=== PATIENT | male | born 1940 | race Caucasian/White ===

== ENCOUNTER → 2016-11-01 | Outpatient (CLI) | payer BC ==
[~2016-11-01] MED LIST: ASPI-232 PO; HYDR12.56 PO; MULT-506 PO; MULT60CA PO; OMEG10007 PO; SAWCAP2 PO; SIMV20TA2 PO; [UNRECOGNIZED DRUG - OTHER] PO
[2016-11-01 10:35] LABS: BASO % 0.6 %; BASO ABS # 0.03 K/uL (0-0.2); COMPLETE YES; EOS % 3.8 %; HEMATOCRIT 48.1 % (42-52); LYMPH % 34.6 %; LYMPH ABS # 1.83 K/uL (1.2-3.4); MEAN CELL VOLUME 91.1 fL (80-100); MEAN CORPUSCULAR HEMOGLOBIN 30.9 pg (25-34); MEAN CORPUSCULAR HGB CONC 33.9 g/dl (32-36); MEAN PLATELET VOLUME 11.7 fL (7.4-10.4); MONO % 9.3 %; NEUT % 51.7 %; PLATELET COUNT 160 K/uL (130-400); RED BLOOD COUNT 5.28 M/uL (4.7-6.1); WHITE BLOOD COUNT 5.29 K/uL (4.8-10.8)
[2016-11-01 10:58] LABS: ESTIMATED AVERAGE GLUCOSE 134 mg/dl; HA1C FLAG Normal (Normal)
[2016-11-01 11:30] LABS: ALKALINE PHOSPHATASE 76 U/L (45-117); ALT/SGPT 28 U/L (12-78); AST/SGOT 22 U/L (15-37); BLOOD UREA NITROGEN 24 mg/dl (7-18); CALCIUM 8.3 mg/dl (8.5-10.1); CARBON DIOXIDE 28 mmol/L (21-32); CHLORIDE 109 mmol/L (98-107); CREATININE 0.95 mg/dl (0.60-1.40); GLUCOSE 96 mg/dl (70-99); HDL CHOLESTEROL 49 mg/dl; SODIUM 144 mmol/L (136-145); URIC ACID 5.7 mg/dl (2.6-7.2)
[2016-11-01 11:35] LABS: CHOLESTEROL 155 mg/dl (0-200); CHOLESTEROL/HDL RATIO 3.2; LDL CHOLESTEROL CALCULATED 91 mg/dl; PHOSPHORUS 2.9 mg/dl (2.5-4.9); TRIGLYCERIDES 76 mg/dl (0-150); VERY LOW DENSITY LIPOPROT CALC 15 mg/dl
[2016-11-02 11:00] LABS: C-REACTIVE PROT HIGHSEN 1.1 MG/L
--- NOTE | 2016-11-05 14:10 | CODING QUERY MEDICAL NECESSITY ---
CQSUPPORTING DIAGNOSIS NEEDED A supporting diagnosis is required for the test/procedure performed on this patient in order for us to be reimbursed by the patient's insurance. Please provide a supporting diagnosis for the following test/procedure listed below next to the test name along with your signature. *If there is no additional diagnosis for this patient that would support the following test/procedure please document that below next to the test/procedure. Test(s)/Procedure(s) that require a supporting diagnosis: DOS 11/01/16 VITAMIN D VITAMIN B12 C-REACTIVE PROTEIN HIGH SENSITIVITY TEST Provider Signature: Date: Thank you Zora [facility] Information Management Once completed, please kindly fax back to [phone] For questions please call [phone]
== END | disposition home or self-care (01) ==
LOC: C.LABBC 08:11
PROVIDERS: ATTEND Family Medicine
DX: E11.9 Type 2 diabetes mellitus without complications (principal); E55.9 Vitamin D deficiency, unspecified; D51.9 Vitamin B12 deficiency anemia, unspecified; E78.2 Mixed hyperlipidemia

== ENCOUNTER → 2016-12-18 | Outpatient (CLI) | payer BC ==
--- NOTE | 2016-12-18 10:35 | DIAGNOSTIC IMAGING REPORT ---
KUB HISTORY: 76 years-old Male N20.0 [id number] COMPARISON: 04/09/2016 TECHNIQUE: Single KUB radiograph FINDINGS: No definite urolithiasis identified. Right kidney is partially secured by overlying bowel. There are moderate degenerative changes of the bilateral hips. Multilevel degenerative changes are seen to the spine. No fracture. There is no bowel obstruction. IMPRESSION: No evidence of nephrolithiasis. The above report was generated using voice recognition software. It may contain grammatical, syntax or spelling errors. Electronically signed by: Hernán Rodriguez M.D. 12/18/2016 10:33 AM Dictated Date/Time: 12/18/2016 10:32 AM
--- NOTE | 2016-12-24 14:20 | CODING QUERY MEDICAL NECESSITY ---
SUPPORTING DIAGNOSIS NEEDED Dr. Ellis, A supporting diagnosis is required for the test/procedure performed on this patient in order for us to be reimbursed by the patient's insurance. Please provide a supporting diagnosis for the following test/procedure listed below next to the test name along with your signature. *If there is no additional diagnosis for this patient that would support the following test/procedure please document that below next to the test/procedure. Test(s)/Procedure(s) that require a supporting diagnosis: * [id number] PSA DIAGNOSIS: DATE OF SERVICE: 12/18/16 Provider Signature: Date: Thank you Yovani Gaytan [facility] Information Management Once completed, please kindly fax back to [phone] For questions please call [phone]
== END | disposition home or self-care (01) ==
LOC: C.RADBC 10:06
PROVIDERS: ATTEND Urology
DX: N20.0 Calculus of kidney (principal); N40.1 Benign prostatic hyperplasia with lower urinary tract symptoms; N13.8 Other obstructive and reflux uropathy

== ENCOUNTER 2022-07-26 08:23 | Observation (INO) ==
--- NOTE | 2022-06-29 15:21 | PAT Medication Instructions ---
Medication Instructions Date of Service June 29, 2022 Home Medications amlodipine 5 mg tablet 5 mg PO QAM multivitamin (Daily Multi-Vitamin tablet) 1 tab PO QAM alpha lipoic acid 300 mg capsule 300 mg PO BID ascorbic acid (vitamin C) 1,000 mg tablet (Vitamin C With Colleen Hips) 1 g PO Q OTHER DAY aspirin 81 mg tablet,delayed release 81 mg PO HS cholecalciferol (vitamin D3) 50 mcg (2,000 unit) capsule 50 mcg PO Q OTHER DAY k-m mineral 1 tsp PO QAM mecobalamin (vitamin B12) 1,000 mcg disintegrating tablet,sublingual 1,000 mcg sublingual BID omega-3 fatty acids [[place]-3] 2 tab PO BID peg 400-propylene glycol [Systane Ultra] 2 drp ophthalmic (eye) BID saw palmetto fruit extract 160 mg-phytosterol cmb.no.2 250 mg capsule (Prostate SR) 2 cap PO BID vit C,E,zinc,Gu-wqiqa-7-lutein-zeaxanthin 250 mg-2.5 mg-0.5 mg capsule 2 cap PO BID zinc gluconate-vitamin C [zinc] 1 tab PO WK finasteride 5 mg tablet 5 mg PO HS hydrochlorothiazide 12.5 mg tablet 12.5 mg PO QAM Continue as directed zinc gluconate-vitamin C [zinc] 1 tab PO WK (just do not take on morning of surgery) STOP taking 2 weeks before surgery alpha lipoic acid 300 mg capsule 300 mg PO BID k-m mineral 1 tsp PO QAM ascorbic acid (vitamin C) 1,000 mg tablet (Vitamin C With Colleen Hips) 1 g PO Q OTHER DAY omega-3 fatty acids [[place]-3] 2 tab PO BID saw palmetto fruit extract 160 mg-phytosterol cmb.no.2 250 mg capsule (Prostate SR) 2 cap PO BID vit C,E,zinc,Yi-ozpfg-6-lutein-zeaxanthin 250 mg-2.5 mg-0.5 mg capsule 2 cap PO BID DO NOT take the morning of surgery multivitamin (Daily Multi-Vitamin tablet) 1 tab PO QAM cholecalciferol (vitamin D3) 50 mcg (2,000 unit) capsule 50 mcg PO Q OTHER DAY mecobalamin (vitamin B12) 1,000 mcg disintegrating tablet,sublingual 1,000 mcg sublingual BID hydrochlorothiazide 12.5 mg tablet 12.5 mg PO QAM Take morning of surgery With a small sip of water, OTHERWISE NOTHING TO EAT OR DRINK AFTER MIDNIGHT: amlodipine 5 mg tablet 5 mg PO QAM peg 400-propylene glycol [Systane Ultra] 2 drp ophthalmic (eye) BID Take evening before surgery aspirin 81 mg tablet,delayed release 81 mg PO HS (unless surgeon directed otherwise) mecobalamin (vitamin B12) 1,000 mcg disintegrating tablet,sublingual 1,000 mcg sublingual BID peg 400-propylene glycol [Systane Ultra] 2 drp ophthalmic (eye) BID finasteride 5 mg tablet 5 mg PO HS Other Notes If you have any questions please call us at [phone] or [phone] or [phone] or [phone]
--- NOTE | 2022-07-04 10:55 | Anesthesiology Consultation ---
Date of Service July 04, 2022 Assessment & Plan (1) Encounter for pre-operative examination: - COVID screening: Per assessment on 07/04: No known COVID-19 positive contacts or current COVID-19 related symptoms. Travel screen negative. Patient vaccinated. At surgeon discretion if preop Covid testing being done. - Check BSG AM DOS - Anesthesia concern: Per patient, he felt like his 's Alzheimer's/dementia issues noted after cataracts surgery/anesthesia. He has concerns about upcoming surgery/anesthesia causing similar issue to him. Questions answered. Advised him to discuss further with anesthesiology day of surgery if any additional questions/concerns. - Awaiting surgeon-ordered PCP (VERONICAG, appt 07/05) and cardiology (VERONICAG, appt 07/05) preop evaluations. Chart Review Chart Review: Patient seen in Pre Admission Testing Teaching & Discussion Pre-Anesthesia Teaching/Discussion Notes: Instructed NPO after midnight before surgery,except medications with 15 cc of water. Medication instructions provided according to the PAT guidelines. History Surgery Operation Date: 07/26/22 10:15 Proposed Procedures p Left Total Knee Arthroplasty - Robb Hanson MD Height/Weight Height: 5 ft 10.5 in Weight: 83.7 kg Allergies Allergy/AdvReac Type Severity Reaction Status Date / Time No Known Allergies Allergy Verified 06/29/22 08:34 Medications Home Medications Medication Instructions Recorded Confirmed Last Taken amlodipine 5 mg tablet 5 mg PO QAM 02/06/19 06/29/22 Unknown multivitamin (Daily Multi-Vitamin 1 tab PO QAM 02/06/19 06/29/22 Unknown tablet) alpha lipoic acid 300 mg capsule 300 mg PO BID 04/25/21 06/29/22 Unknown ascorbic acid (vitamin C) 1,000 mg 1 g PO Q OTHER DAY 04/25/21 06/29/22 Unknown tablet (Vitamin C With Colleen Hips) aspirin 81 mg tablet,delayed 81 mg PO HS 04/25/21 06/29/22 Unknown release cholecalciferol (vitamin D3) 50 50 mcg PO Q OTHER DAY 04/25/21 06/29/22 Unknown mcg (2,000 unit) capsule k-m mineral 1 tsp PO QAM 04/25/21 06/29/22 Unknown mecobalamin (vitamin B12) 1,000 1,000 mcg sublingual BID 04/25/21 06/29/22 Unknown mcg disintegrating tablet,sublingual omega-3 fatty acids [[place]-3] 2 tab PO BID 04/25/21 06/29/22 Unknown peg 400-propylene glycol [Systane 2 drp ophthalmic (eye) BID 04/25/21 06/29/22 Unknown Ultra] saw palmetto fruit extract 160 2 cap PO BID 04/25/21 06/29/22 Unknown mg-phytosterol cmb.no.2 250 mg capsule (Prostate SR) vit 2 cap PO BID 04/25/21 06/29/22 Unknown C,E,zinc,Rr-tktxa-3-lutein-zeaxanthin 250 mg-2.5 mg-0.5 mg capsule zinc gluconate-vitamin C [zinc] 1 tab PO WK 04/25/21 06/29/22 Unknown finasteride 5 mg tablet 5 mg PO HS 03/28/22 06/29/22 Unknown hydrochlorothiazide 12.5 mg tablet 12.5 mg PO QAM 03/28/22 06/29/22 Unknown Past Medical History Medical History Borderline diabetes mellitus Diet controlled BPH (benign prostatic hyperplasia) Hypertension Knee injury LBBB (left bundle branch block) follows with Dr. Saab Mixed hyperlipidemia Nephrolithiasis Organic impotence Osteoarthritis Exercise / Class Metabolic Activity II 4-5 Yardwork/Stairs/Walk up hill Past Family History Family History Denies family history of Ovarian cancer Prostate cancer Diabetes Myocardial infarction Breast cancer Colorectal cancer Past Surgical History Surgical History H/O lithotripsy H/O rotator cuff surgery Left History of colonoscopy History of esophagogastroduodenoscopy (EGD) History of tooth extraction S/P cataract extraction R/L S/P tonsillectomy Past Anesthesia History No Hx of Anesthesia Complications and No Family Hx of Anesthesia Complications History of PONV No Hx of PONV and No Hx of Motion Sickness Social History Smoking Status: Former smoker Do You Dip or Chew Tobacco: No Smoking End Date: Quit 60 years ago Hx Alcohol Use: Yes Alcohol type: wine alcohol intake frequency: a few times a month Hx Substance Use: No substance use type: does not use Review of Systems Patient denies chest pain, shortness of breath, dyspnea on exertion, fever, chills, cough, wheezing, palpitations. Physical Exam Vital Signs VITALS BP 130/70 P 67 TEMP 98.2 SP02 96%RA RESP 16 PHYSICAL Full cervical extension range of motion. Full TMJ range of motion. TMD 3 finger breaths Mallampati Score 2 Dentition: intact, + implants (molars/sides) Lungs: clear throughout to auscultation Cardiac: regular rate and rhythm, no murmurs noted Spine: normal Carotid arteries: negative bruit Extremities: no edema Lab Results Anesthesia Preop Results Results Anesthesia Widget: WBC 6.38 K/ul (4.8-10.8) 07/04/22 Hgb 15.1 g/dl (14.0-18.0) 07/04/22 Hct 44.4 % (42.0-52.0) 07/04/22 Plt 151 K/uL (130-400) 07/04/22 Na 140 mmol/L (136-145) 07/04/22 K 4.1 mmol/L (3.5-5.1) 07/04/22 Cl 104 mmol/L (98-107) 07/04/22 CO2 33 mmol/L (21-32) H 07/04/22 BUN 21 mg/dl (6-23) 07/04/22 Creat 0.81 mg/dl (0.6-1.4) 07/04/22 Glucose Level 135 mg/dl (70-99(Fasting)) H 07/04/22 PT 10.7 Seconds (9.0-12.0) 07/04/22 PTT 27.5 Seconds (21.0-31.0) 07/04/22 INR 1.0 (0.9-1.1) 07/04/22 HA1c 6.8 % (4.5-5.6) H 07/04/22 Urine Color Yellow 07/04/22 Urine Appearance Clear (Clear) 07/04/22 Urine pH 6.5 (4.5-7.5) 07/04/22 Urine Specific [place] 1.019 (1.000-1.030) 07/04/22 Urine Protein Negative (Negative) 07/04/22 Urine Glucose (UA) Negative (Negative) 07/04/22 Urine Ketones Negative (Negative) 07/04/22 Urine Blood Negative (Negative) 07/04/22 Urine Nitrite Negative (Negative) 07/04/22 Urine Bilirubin Negative (Negative) 07/04/22 Urine Urobilinogen Negative (Negative) 07/04/22 Urine Leukocyte Esterase Negative (Negative) 07/04/22 Blood Type O Positive 07/04/22 Antibody Screen NEGATIVE 07/04/22 Testing Electrocardiogram Date: 07/04/22 NSR at 75bpm. LAD. LBBB. No significant change compared to 01/05/2003 per retail advertising account executive review. Echocardiogram Date: 12/28/20 EF 50-55%. No regional motion abnormalities. Septal motion consistent with bundle branch block. Moderate concentric LVH. Type I diastolic dysfunction. Study was originally ordered as exercise stress echo but given left bundle branch block, stress testing was not performed. Consider Lexiscan myocardial perfusion study given left bundle branch block if noninvasive ischemic evaluation is warranted. Per subsequent cardio visit 04/25/21, echo findings reviewed- "stable from cardiac standpoint. With current activity no new exertional symptoms. On exam today no signs of heart failure or new PVD. Recent echocardiogram with stable LV function." Recommendation for 1 year followup. No ischemic testing ordered. COVID-19 Risk Screen Screening Information COVID-19 Screen Date: 07/04/22 Exposure 21 Days Family/Household +COVID Last 21 Days: No Exposure 10 Days Any COVID Exposure Last 10 Days: No Symptoms Last 10 Days Experienced COVID Sx Last 10 Days: No + COVID 0-90 Days COVID + in Last 0-90 Days: No
--- NOTE | 2022-07-04 15:28 | History & Physical Report ---
Date of Service July 04, 2022 Assessment & Plan (1) Osteoarthritis of left knee: Plan: PRE-OP Diagnosis: Left knee osteoarthritis Planned Procedure: Left total knee arthroplasty Plan: Patient is scheduled to undergo this procedure at the [facility] with Dr. Hanson on July. Risks and complications of the procedure such as: Infection, bleeding, pain, scarring, nerve blood vessel damage, weakness, wound problems, stiffness, incomplete relief of symptoms, hardware failure, hardware loosening, wear, fracture, tendon or ligament injury, blood clots, embolism, cardiac, stroke and were explained to the patient at his visit today and informed consent for the procedure was obtained. Patient also understands risks of proceeding with surgical intervention during the COVID-19 pandemic. Currently he is asymptomatic and states that he has not been in contact with anyone positive for the virus recently. 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 Patient is scheduled to meet with anesthesia at the hospital later this morning. While there he will obtain a CBC with differential, complete metabolic panel, PT/INR, PTT, blood type and screen, urinalysis, urine culture and sensitivity, EKG. During today's visit we reviewed the total knee packet. I provided the patient with paperwork to obtain obtaining a handicap placard for his vehicle. I provided her with information about lectures offered by [facility] in regards to joint replacement surgery. I provided him with an order to obtain a walker. I recommended that he purchase a shower chair and raised toilet seat. We discussed discharge planning from the hospital. Patient states he would like to do his postoperative physical therapy at [facility] where his is a resident.. I advised the patient that he will be provided with a prescription for narcotic pain medication for postoperative pain control. We will have him increase his daily aspirin twice daily for the first 30 days postoperatively for blood clot prevention. Patient verbalized understanding of all information provided during today's visit. He thanks for the care that he received. If he has questions or concerns prior to his surgery, he will contact clinic. Patient be scheduled for 2-week postoperative follow-up visit with myself on August 08, 2022. This chart was completed utilizing [employer] voice recognition software. Grammatical errors, random word insertions, pronoun errors, and in complete sentences are an occasional consequence of the system. Any questions or concerns about the content, text, or information contained within the body of this dictation should be addressed directly to the physician for clarification. History of Present Illness Chief Complaint: Chief Complaint: Left knee pain Primary Care Provider: Ludin Downey MD History of Present Illness (including history relevant to procedure): Is a 82-year-old male presents clinic today for his preoperative history and physical. 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 Patient localizes most of his pain to the anterior medial aspect of the left knee. He states that time the pain does radiate proximally. He states is affecting his gait. He states that he has done physical therapy tried oral nonsteroidal agents and rest without significant relief. He has also had his knee aspirated and received corticosteroid injections without resolve. Patient states that he recently had to send his to [facility] because he is unable to care for her due to these issues. Review Of Systems: A 12 point review of systems is performed and is unremarkable except for those things stated in the HPI and past medical history. Past Medical History: Problems: Diabetes Irregular heartbeat Left knee pain Epidermal cyst Lipoma Inflamed seborrheic keratosis Keratosis, seborrheic Family history of melanoma Elevated cholesterol HTN (hypertension) Benign neoplasm of skin Procedure History Procedure Procedure Date Comments Rotator cuff repair Prostate - surgery Cataract Punch biopsy Esophageal dilator Allergies and Sensitivities: NKA Social history: Patient states that he occasionally consumes a glass of wine but denies tobacco or illicit drug use. Family history: Emphysema, heart disease, diabetes and stroke Current Home Meds: (Last Updated 07/04 09:45) amLODIPine (amLODIPine 5 mg oral tablet) 5 mg PO Daily ascorbic acid (Vitamin C) aspirin (Aspirin Low Dose 81 mg oral delayed release tablet) 81 mg PO Daily cholecalciferol (Vitamin D3 50 mcg (2000 intl units) oral tablet, chewable) cyanocobalamin (Vitamin B12) 1,000 mcg finasteride (finasteride 5 mg oral tablet) 5 mg PO Daily Women of childbearing age should not touch or handle broken tablets. Berna Umaña 04/17 09:38 hydroCHLOROthiazide (hydrochlorothiazide 12.5 mg oral tablet) 12.5 mg PO Daily 5 mg daily multivitamin with minerals (PreserVision oral tablet) 1 tab PO Daily multivitamin with minerals (One-A-Day Men 50 Plus) 1 tab PO Daily omega-3 polyunsaturated fatty acids (Fish Oil 1000 mg oral capsule) 1,000 mg PO bid saw palmetto (Prostate SR 320 mg oral capsule) 640 mg PO bid simvastatin (simvastatin 20 mg oral tablet) 20 mg PO qhs zinc sulfate (Zinc) Allergies Allergy/AdvReac Type Severity Reaction Status Date / Time No Known Allergies Allergy Verified 06/29/22 08:34 Home Medications Medication Instructions Recorded Confirmed Type amlodipine 5 mg tablet 5 mg PO QAM 02/06/19 06/29/22 History multivitamin (Daily Multi-Vitamin 1 tab PO QAM 02/06/19 06/29/22 History tablet) alpha lipoic acid 300 mg capsule 300 mg PO BID 04/25/21 06/29/22 History ascorbic acid (vitamin C) 1,000 mg 1 g PO Q OTHER DAY 04/25/21 06/29/22 History tablet (Vitamin C With Colleen Hips) aspirin 81 mg tablet,delayed 81 mg PO HS 04/25/21 06/29/22 History release cholecalciferol (vitamin D3) 50 50 mcg PO Q OTHER DAY 04/25/21 06/29/22 History mcg (2,000 unit) capsule k-m mineral 1 tsp PO QAM 04/25/21 06/29/22 History mecobalamin (vitamin B12) 1,000 1,000 mcg sublingual BID 04/25/21 06/29/22 History mcg disintegrating tablet,sublingual omega-3 fatty acids [[place]-3] 2 tab PO BID 04/25/21 06/29/22 History peg 400-propylene glycol [Systane 2 drp ophthalmic (eye) BID 04/25/21 06/29/22 History Ultra] saw palmetto fruit extract 160 2 cap PO BID 04/25/21 06/29/22 History mg-phytosterol cmb.no.2 250 mg capsule (Prostate SR) vit 2 cap PO BID 04/25/21 06/29/22 History C,E,zinc,Qp-ciggl-0-lutein-zeaxanthin 250 mg-2.5 mg-0.5 mg capsule zinc gluconate-vitamin C [zinc] 1 tab PO WK 04/25/21 06/29/22 History finasteride 5 mg tablet 5 mg PO HS 03/28/22 06/29/22 History hydrochlorothiazide 12.5 mg tablet 12.5 mg PO QAM 03/28/22 06/29/22 History Past Med/Surg History Medical History Borderline diabetes mellitus Diet controlled BPH (benign prostatic hyperplasia) Hypertension Knee injury LBBB (left bundle branch block) follows with Dr. Saab Mixed hyperlipidemia Nephrolithiasis Organic impotence Osteoarthritis Surgical History H/O lithotripsy H/O rotator cuff surgery Left History of colonoscopy History of esophagogastroduodenoscopy (EGD) History of tooth extraction S/P cataract extraction R/L S/P tonsillectomy Family History Denies family history of Ovarian cancer Prostate cancer Diabetes Myocardial infarction Breast cancer Colorectal cancer Social History Smoking Status: Former smoker Tobacco Type: Cigarettes Age Started Using Tobacco: 16; Age Quit Using Tobacco: 18; Second Hand Exposure: No; Hx Alcohol Use: Yes Alcohol type: wine Alcohol Intake Frequency: Monthly or Less Hx Substance Use: No Preferred Language: Czech Communication Ability: Effective Visual Impairment: No Limitations Hearing Ability: Hard of Hearing Interior Design Coordinator Required: No Beliefs That Will Affect Care: None marital status: Current Living Situation: Alone current occupational status: retired How many Children do You have: 2 Feels Safe at Home: Yes Childhood Exposure to Second-Hand Smoke: No caffeine: Yes during the past year weight has: remained stable Dental Care, Regularly: Yes Physical Activity Frequency: 3-4 Times per Week Seatbelt Use: always Sunscreen Use: Yes Assistive Devices: Glasses Review of Systems All systems reviewed & are unremarkable except as noted in Subjective Physical Exam Physical Exam: Physical Exam: (relevant to the procedure, including heart and lung evaluation) General: Alert and oriented x3 with proper grooming and hygiene Eyes: Pupils are equal and reactive to light with accommodation. Extraocular movements are intact Throat: Posterior oropharynx clear with absence of edema, erythema or exudate. Dentition is appropriate Cardiac: Regular rate and rhythm with no murmurs or gallops appreciated Lungs: Clear to auscultation throughout with no wheezing, rales or rhonchi Abdomen: Obese, nondistended, nontender with normal active bowel sounds Extremities: Left knee; range of motion is from a degrees of extension to 120 degrees of flexion. Patient experiences medial and lateral joint line tenderness when the knee is palpated in the flexed position. He has visible varus malalignment. His patella is nonmobile due to arthritic change within the patellofemoral joint. There is crepitation with passive range of motion. Otherwise he is neurovascularly intact in the left lower extremity. Neuro: Cranial nerves II through XII are intact with no motor or sensory deficit Skin: Normal in appearance with no open skin areas or discharge Results & Data ([facility]) Diagnostic Findings Studies (relevant to the procedure): RADIOGRAPHIC: Left knee x-rays obtained today 3 views, and long leg alignment films personally interpreted by me show [id number] arthritis at the medial left knee joint, small enthesophyte off superior pole patella, varus malalignment.
[~2022-07-26 08:23] MED LIST changes: +ACETAMINOPHEN 500 MG TAB PO SCH; -ASPI-232 PO; +BUPIVACAINE 0.5 % 5 MG/1 ML PF 10ML VIAL ONE; +CeleBREX 200 MG CAP PO SCH; +FAMOTIDINE 20 MG TAB PO SCH; -HYDR12.56 PO; +LR 500ML BOLUS, THEN 15ML/HR IV SCH; +LR 60ML/HR IV SCH; -MULT-506 PO; -MULT60CA PO; -OMEG10007 PO; +ROPIVACAINE 0.5% 5 MG/ML 30 ML VIAL ONE; +ROPIVACAINE 0.5% HCL/PF 150 MG, BUPIVACAINE 0.75% MPF 20 ML, EPINEPHrine 0.15 MG, Ketor... INFIL SCH; -SAWCAP2 PO; -SIMV20TA2 PO; +Scopolamine 1 MG TDSY TD SCH; +TRANEXAMIC ACID 1,000 MG **IV Intra-op IV SCH; +TRANEXAMIC ACID 1,000 MG **IV Pre-op IV SCH; -[UNRECOGNIZED DRUG - OTHER] PO; +ceFAZolin 2000MG 2,000 MG/15 ML SYR IV SCH; +dexAMETHasone 4 MG TAB PO SCH; +traMADol HCL 50 MG TABLET PO SCH
[2022-07-26] MEDS ORDERED: LIDOCAINE 2% MPF LOCAL 5 ML VIAL INFIL ONE (08:54)
[2022-07-26] MEDS ORDERED: MIDAZOLAM HCL 1 MG/ML 2ML VIAL ONE (08:54)
[2022-07-26] MEDS ORDERED: PROPOFOL IV EMULSION 10 MG/ML 20 ML VIAL IV ONE ×3 (08:54→10:54)
--- NOTE | 2022-07-26 08:58 | Anesthesiology Consultation ---
Date of Service July 26, 2022 Assessment & Plan Chart Review Chart Review: Acceptable Risk for Surgery Consults Requested none ASA ASA3 Proposed Anesthesia Anesthesia Type: MAC Spinal Regional Laterality: Left Site: Adductor Canal Risk / Benefits Reviewed With: PT / POA / Parent / Guardian, Accepts Plan and Informed Consent Obtained History Surgery Operation Date: 07/26/22 10:05 Proposed Procedures p Left Total Knee Arthroplasty - Robb Hanson MD Height/Weight Height: 5 ft 10.5 in Weight: 82.1 kg Allergies Allergy/AdvReac Type Severity Reaction Status Date / Time No Known Allergies Allergy Verified 07/26/22 08:52 Medications Home Medications Medication Instructions Recorded Confirmed Last Taken amlodipine 5 mg tablet 5 mg PO QAM 02/06/19 07/26/22 07/25/22 05:00 multivitamin (Daily Multi-Vitamin 1 tab PO QAM 02/06/19 07/26/22 07/24/22 08:00 tablet) alpha lipoic acid 300 mg capsule 300 mg PO BID 04/25/21 07/26/22 07/12/22 08:00 ascorbic acid (vitamin C) 1,000 mg 1 g PO Q OTHER DAY 04/25/21 07/26/22 07/12/22 08:00 tablet (Vitamin C With Colleen Hips) aspirin 81 mg tablet,delayed 81 mg PO HS 04/25/21 07/26/22 07/24/22 19:00 release cholecalciferol (vitamin D3) 50 50 mcg PO Q OTHER DAY 04/25/21 07/26/22 07/12/22 08:00 mcg (2,000 unit) capsule k-m mineral 1 tsp PO QAM 04/25/21 07/26/22 07/12/22 08:00 mecobalamin (vitamin B12) 1,000 1,000 mcg sublingual BID 04/25/21 07/26/22 07/12/22 08:00 mcg disintegrating tablet,sublingual omega-3 fatty acids [Aubrey-3] 2 tab PO BID 04/25/21 07/26/22 07/12/22 08:00 peg 400-propylene glycol [Systane 2 drp ophthalmic (eye) BID 04/25/21 07/26/22 07/12/22 08:00 Ultra] saw palmetto fruit extract 160 2 cap PO BID 11/07/26/22 07/12/22 08:00 mg-phytosterol cmb.no.2 250 mg capsule (Prostate SR) vit 2 cap PO BID 04/25/21 07/26/22 07/12/22 08:00 C,E,zinc,Dj-onmbp-0-lutein-zeaxanthin 250 mg-2.5 mg-0.5 mg capsule zinc gluconate-vitamin C [zinc] 1 tab PO WK 04/25/21 07/26/22 07/12/22 08:00 hydrochlorothiazide 12.5 mg tablet 12.5 mg PO QAM 03/28/22 07/26/22 07/24/22 08:00 finasteride 5 mg tablet 5 mg PO HS #90 tabs 07/05/22 07/26/22 07/25/22 19:00 Active Medications Generic Name Dose Route Start Last Admin Trade Name Freq PRN Reason Stop Dose Admin Acetaminophen 1,000 mg 07/26/22 06:00 07/26/22 08:59 Acetaminophen 500 Mg Tab PO 07/26/22 18:00 1,000 mg PREOP DUARTE Administration Celecoxib 200 mg 07/26/22 06:00 07/26/22 08:59 Celebrex 200 Mg Cap PO 07/26/22 18:00 200 mg PREOP DUARTE Administration Dexamethasone 8 mg 07/26/22 06:00 07/26/22 08:59 Dexamethasone 4 Mg Tab PO 07/26/22 18:00 8 mg PREOP DUARTE Administration Famotidine 20 mg 07/26/22 06:00 07/26/22 09:00 Famotidine 20 Mg Tab PO 07/26/22 18:00 20 mg PREOP DUARTE Administration Lactated Ringer's 1,000 mls @ 15 mls/hr 07/26/22 06:00 07/26/22 09:01 Lr IV 07/26/22 18:00 15 mls/hr .Q24H DUARTE Administration Lactated Ringer's 1,000 mls @ 60 mls/hr 07/26/22 06:00 07/26/22 09:01 Lr IV 07/26/22 22:39 Not Given .[id number] DUARTE Tranexamic Acid 1,000 mg in 100 mls @ 600 mls/hr 07/26/22 06:00 07/26/22 10:15 Tranexamic Acid / 0.7% Nacl IV 07/26/22 18:00 Infused TODAY@0600 DUARTE Infusion Scopolamine 1 mg 07/26/22 06:00 07/26/22 09:00 Scopolamine 1 Mg Tdsy TD 07/26/22 18:00 1 mg PREOP DUARTE Administration Tramadol HCl 50 mg 07/26/22 06:00 07/26/22 09:00 Tramadol Hcl 50 Mg Tablet PO 07/26/22 18:00 50 mg PREOP DUARTE Administration NPO Date Last Intake of Fluids: 07/26/22 Time Last Intake of Fluids: 07:00 Last Intake of Fluids Comment: sip with meds Date Last Intake of Solids: 07/25/22 Time Last Intake of Solids: 18:30 Past Medical History Medical History Borderline diabetes mellitus Diet controlled BPH (benign prostatic hyperplasia) Hypertension Knee injury LBBB (left bundle branch block) follows with Dr. Saab Mixed hyperlipidemia Nephrolithiasis Organic impotence Osteoarthritis Exercise / Class Metabolic Activity II 4-5 Yardwork/Stairs/Walk up hill Past Family History Family History Denies family history of Ovarian cancer Prostate cancer Diabetes Myocardial infarction Breast cancer Colorectal cancer Past Surgical History Surgical History H/O lithotripsy H/O rotator cuff surgery Left History of colonoscopy History of esophagogastroduodenoscopy (EGD) History of tooth extraction S/P cataract extraction R/L S/P tonsillectomy Past Anesthesia History No Hx of Anesthesia Complications and No Family Hx of Anesthesia Complications History of PONV No Hx of PONV and No Hx of Motion Sickness Social History Smoking Status: Former smoker Do You Dip or Chew Tobacco: No Smoking End Date: Quit 60 years ago Hx Alcohol Use: Yes Alcohol type: wine alcohol intake frequency: a few times a month Hx Substance Use: No substance use type: does not use Physical Exam Vital Signs Last Vital Signs Temp 36.4 C L 07/26/22 09:16 Pulse 81 07/26/22 09:16 Resp 20 07/26/22 09:16 BP 171/84 H 07/26/22 09:16 Pulse Ox 95 07/26/22 09:16 O2 Del Method Room Air 07/26/22 09:16 Constitutional no acute distress ENMT Thyromental Distance: > or= 3.5 Finger Breadths Mallampati Class: II Neck normal visual inspection Respiratory normal respiratory effort; no respiratory distress Auscultation: lungs clear to auscultation bilaterally Cardiovascular Rate/Rhythm: regular rate and regular rhythm Heart Sounds: no murmur Psychiatric Orientation: alert and oriented x 3 Testing Laboratory Results 07/26/22 09:06 POC Glucose 137 H Electrocardiogram Date: 07/04/22 NSR at 75bpm. LAD. LBBB. 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 Echocardiogram Date: 12/28/20 EF 50-55%. No regional motion abnormalities. Septal motion consistent with bundle branch block. Moderate concentric LVH. Type I diastolic dysfunction. Study was originally ordered as exercise stress echo but given left bundle branch block, stress testing was not performed. Consider Lexiscan myocardial perfusion study given left bundle branch block if noninvasive ischemic e valuation is warranted. Per subsequent cardio visit 04/25/21, echo findings reviewed- "stable from cardiac standpoint. With current activity no new exertional symptoms. On exam today no signs of heart failure or new PVD. Recent echocardiogram with stable LV function." Recommendation for 1 year followup. No ischemic testing ordered.
[2022-07-26] MEDS ORDERED: HYDROmorphone INJ 1 MG/ML SYRINGE IV PRN (09:01)
[2022-07-26] MEDS ORDERED: ePHEDrine sulfate 50 MG/ML AMP IV PRN (09:01)
[2022-07-26] MEDS ORDERED: ATROPINE SULFATE 0.1 MG/ML 10ML SYR IV PRN (09:01)
[2022-07-26] MEDS ORDERED: ONDANSETRON INJ 2 MG/ML 2 ML VIAL IV PRN ×2 (09:01→12:29)
[2022-07-26] MEDS ORDERED: fentaNYL citrate 100 MCG/2 ML VIAL ONE (09:45)
--- NOTE | 2022-07-26 10:03 | History & Physical Bridge Note ---
Date of Service July 26, 2022 History & Physical Bridge Note I have examined the patient, reviewed the History & Physical and in the interval since the performance of the History & Physical I have noted the following changes of clinical significance: no changes noted
[2022-07-26] MEDS ORDERED: ORTHO JOINT ANESTHETIC ONE (10:13)
[2022-07-26] MEDS ORDERED: ONDANSETRON INJ 2 MG/ML 2 ML VIAL ONE (10:33)
[2022-07-26] MEDS ORDERED: METOCLOPRAMIDE HCL INJ 5 MG/ML 2 ML VIAL ONE (10:43)
--- NOTE | 2022-07-26 12:26 | Operative Report ---
Post Operative Report Pre & Post Diagnosis Operation Date: 07/26/22 10:05 Pre-Op Diagnosis: Left Knee Osteoarthritis Post-Op Diagnosis: Left Knee Osteoarthritis I identified the patient and participated in the time-out.: Yes Procedure Operation Date: 07/26/22 10:05 Actual Procedures p Left Total Knee Arthroplasty(Left) - Robb Hanson MD Surgeon Robb Hanson MD School Psychology Specialist CARYN Schultz PA-C and Gertrude Quinones MS-2 Estimated Blood Loss 50 Findings Consistent with Post-Op Diagnosis Specimens 1. Nodular synovitis from the suprapatellar pouch 2. Bone and soft tissue contents left knee Anesthesia Type Spinal MAC Complications none Disposition Disposition: Recovery Room Indications 82-year-old male with left knee osteoarthritis refractory to conservative management. X-rays demonstrate [id number] disease. I had a long discussion with him about the risks and benefits of surgery, alternatives, and expected outcomes. After reviewing all these he elected to proceed with surgery. All questions were answered. Informed consent was signed. Description of Procedure Patient was identified in the preoperative holding area where the surgical site, left knee, was marked. Spinal anesthetic was placed by anesthesia. Patient was brought back to the operating room, placed on the operating room table, and IV sedation was administered. A bump was placed underneath the ipsilateral hip. All bony prominences were padded. Perioperative antibiotics and tranexamic acid were administered. Exam under anesthesia was performed. This demonstrated patient's range of motion to be 3 to 100 degrees. He was stable to varus and valgus at full extension and 30 degrees of flexion. A large 3+ effusion was noted as well. The surgical site was prepped and draped in the normal sterile fashion. Prior to incision a multidisciplinary timeout was called. All in the room were in agreement. We began by exsanguinating the limb with an Esmarch bandage. Tourniquet was inflated to 250 mmHg. A 14 cm long incision was made over the anterior aspect of the knee. I dissected through the subcutaneous tissues to the level of the fascia. Full-thickness flaps were raised above the fascia. A median parapatellar arthrotomy was made. Half the fat pad was excised. A medial release was performed with Bovie electrocautery on the proximal tibia. Synovitis in the knee and suprapatellar pouch was removed. There was an abnormal nodular component to the suprapatellar synovitis possibly consistent with pigmented villonodular synovitis. This was sent as a separate specimen for permanent section. The patella was then everted and held with 2 towel clips. The thickness of the patella was measured at 27 mm. Patellar resection was performed. Caliper showed the patella thickness now to be 16 mm. A size 41 trial was placed and had a great fit. The 3 drill holes were placed then the trial button was placed. The patellar thickness was now 27 mm which I was very happy with. The patellar trial was then removed, and the knee was flexed up. Retractors were placed to protect the MCL and LCL. Osteophytes were removed from the femoral condyles and intercondylar notch. The ACL and PCL were excised. Intramedullary drill guide was drilled into the femur. Distal femoral cutting guide was placed set at 5 degrees of valgus to resect 10 mm off the distal femur. Distal femoral resection was made without difficulty. The tibia was then exposed. The lateral meniscus was sharply excised. The tibial cutting jig was positioned in line with the tibial shaft in the coronal plane and with 3 degrees of posterior slope in the sagittal plane to resect 4 mm off the more involved medial compartment. The jig was then pinned in position and the tibial cut was made. We then brought the knee into full extension. Lamina spreaders were placed. The medial meniscus was excised. The extension block was then placed for 7 mm thickness poly. This gave us full extension and excellent stability to varus and valgus stress. Next the extension block was removed, the knee was flexed up, collateral ligaments were protected, and the epicondylar axis and Whitesides line were marked out on the distal femoral cut. Femoral sizing guide was placed. External rotation was set at 3 degrees so that the posterior cut would be parallel with the epicondylar axis and perpendicular with Whitesides line. The patient sized to a size 6 femur. 2 pins were then placed through the jig into the distal femur. The jig was removed and the appropriately sized 4-in-1 cutting jig was placed over the pins, then fixated to the bone using threaded, headed pins. We confirmed that we would not notch the femur with our anterior cut. Our 4 cuts were then made. The cutting jig was removed. The flexion block was then placed with the knee held at 90 degrees. There was excellent stability to varus and valgus at 90 degrees with no gapping medially or laterally. Next the box cutting jig was placed on the distal femur. The box cut was made and the femoral trial was impacted into position. Lug holes were drilled in the distal femur. We then reexposed the tibia. The tibia was sized to a 6 for a fixed bearing component. The tibial tray with a 7 mm thickness polyethylene liner was placed on the cut tibial surface and the knee was brought through a full range of motion. There was excellent stability to varus valgus stress throughout a full range of motion, which was approximately 0-135 degrees. Bovie electrocautery was used to heather the tibia at the site where the tibial tray rested in full extension. We then flexed up the knee, removed the polyethylene liner, and pinned the tibial tray into position to match the cautery heather. The intramedullary drill followed by the keel punch were used to prepare the tibia. Next the trial components were removed. I then injected the posterior capsule and periosteum with the periarticular injection cocktail. The bone cuts were then irrigated and dried while the cement was mixed on the back table. The femoral component was cemented on first. Excess cement was removed. A lap sponge was placed over the femoral component for protection, then the tibia was subluxated anteriorly. The all polyethylene tibial component was then cemented in place. Again excess cement was removed. The knee was brought into full extension and held there until the cement cured. The patella was cemented and clamped. Dilute Betadine solution was then allowed to soak in the knee while the cement cured. Once the cement was fully cured, the knee was irrigated out, the tourniquet was let down and meticulous hemostasis was ensured. The knee was brought through a full range of motion. I was were very happy with the patella tracking and the stability. We then began to close. Interrupted 0 Vicryl suture was used to repair the patellar retinaculum in [id number] fashion. The quadriceps and patellar tendons were run with #1 Vicryl. The deep dermal layer was closed with interrupted 2-0 Vicryl. Dermabond and Zipline was used for the skin, followed by a Silverlon dressing. A compressive Cameron wrap was placed and the knee was placed into a knee immobilizer. Patient's sedation was lifted and was transferred to recovery room in stable condition. Summary of implants: Depuy Attune Posterior Stabilized Cemented Femur, size 6 left Attune All-polyethylene tibial component, posterior stabilized 7 mm thickness, size 6 Attune patella medialized dome, size 41 2 batches of simplex high viscosity bone cement Postoperative course: Patient will be admitted to the floor for pain control and monitoring. Weightbearing as tolerated with a walker with no knee range of motion for 48 hours. Aspirin for DVT prophylaxis. I attest to the content of the Intraoperative Record and any orders documented therein. Any exceptions are noted below.
[2022-07-26] MEDS ORDERED: MAGNESIUM HYDROXIDE SUSP 30 ML UDC PO PRN (12:29)
[2022-07-26] MEDS ORDERED: HYDROmorphone INJ 0.5 MG/0.5 ML SYR IV PRN (12:29)
[2022-07-26] MEDS ORDERED: ALUMINUM/MAGNESIUM SUSP 30 ML UDC PO PRN (12:29)
[2022-07-26] MEDS ORDERED: TAMSULOSIN HCL 0.4 MG CAP PO PRN (12:29)
[2022-07-26] MEDS ORDERED: NALOXONE HCL 0.4 MG/1 ML VIAL/CARP IV PRN (12:29)
[2022-07-26] MEDS ORDERED: bisacodyL 10 MG SUPP PR PRN (12:29)
[2022-07-26] MEDS ORDERED: diphenhydrAMINE 50 MG/ML VIAL IV PRN (12:29)
[2022-07-26] MEDS ORDERED: METOCLOPRAMIDE HCL INJ 5 MG/ML 2 ML VIAL IV PRN (12:29)
--- NOTE | 2022-07-26 12:29 | Operative Report ---
Post Operative Report Pre & Post Diagnosis Operation Date: 07/26/22 10:05 Pre-Op Diagnosis: Left Knee Osteoarthritis Post-Op Diagnosis: Left Knee Osteoarthritis I identified the patient and participated in the time-out.: Yes Procedure Operation Date: 07/26/22 10:05 Actual Procedures p Left Total Knee Arthroplasty(Left) - Robb Hanson MD Surgeon Robb Hanson MD Project Portfolio Analyst CARYN Schultz PA-C and Gertrude Quinones MS-2 Estimated Blood Loss 50 Findings Consistent with Post-Op Diagnosis Specimens suprapatellar synovium Description of Procedure I was present during the entire procedure assisting with positioning, prepping, draping, wound retraction, wound closure, dressing and immobilizer placement. No fellow present. Please see Dr. Hanson procedure note for specifics of the case. I attest to the content of the Intraoperative Record and any orders documented therein. Any exceptions are noted below.
[2022-07-26] MEDS ORDERED: SODIUM CHLORIDE 0.9% 1000ML 1,000 ML IV SCH (12:30)
[2022-07-26] MEDS ORDERED: ZINC GLUCONATE VITAMIN C PO SCH (12:45)
--- NOTE | 2022-07-26 12:58 | Anesthesiology Progress Note ---
Date of Service July 26, 2022 Anesthesia Post Procedure Vital Signs Vital Signs: Temp Pulse Pulse Resp BP Pulse Ox O2 Del Method 07/26/22 12:55 78 18 113/85 93 Room Air 07/26/22 12:45 90 15 135/76 93 Room Air 07/26/22 12:35 82 21 123/77 94 Room Air 07/26/22 12:29 36.6 C 81 14 101/74 92 Room Air 07/26/22 09:16 36.4 C L 81 20 171/84 H 95 Room Air Transfer of Care Handoff Completed per policy Notes Mental Status: alert / awake / arousable and participated in evaluation Nausea / Vomiting: adequately controlled Pain: adequately controlled Airway Patency, RR, SpO2: stable & adequate BP & HR: stable & adequate Hydration State: stable & adequate Neuraxial Anesthesia: was administered and sensory block is resolving Anesthetic Complications: no major complications apparent and Pt Satisfied with anesthetic care
--- NOTE | 2022-07-26 13:11 | XRay Report ---
LEFT KNEE 2 VIEWS History: Left total knee arthroplasty. Degenerative arthritis. Postop. FINDINGS: The patient is status post a left total knee arthroplasty. The hardware is intact. No fract ure or dislocation. IMPRESSION: Left total knee arthroplasty. No evidence for hardware complication. ACT 112: Negative or not required by law. Electronically signed by: Oscar Pretty M.D. 07/26/2022 1:10 PM
[2022-07-26] MEDS: KETOROLAC TROMETHAMINE 15 MG/ML VIAL IV SCH ×2 (15:21→19:58)
[2022-07-26] MEDS: ACETAMINOPHEN 500 MG TAB PO SCH ×2 (15:21→22:04)
--- NOTE | 2022-07-26 15:35 | Orthopedic Progress Note ---
Date of Service July 26, 2022 Assessment & Plan (1) Status post total knee replacement, left: Plan WBAT LLE. Use knee immobilizer for 48 hrs Pain control with tylenol, oxycodone ketorolac as ordered PT/OT consulted Regular diet DVT prophylaxis with ASA D/C plan to [facility] tomorrow. Admission and Anticipated Discharge Date Admission Date: July 26, 2022 Subjective Patient seen POD 0 s/p Left TKA. Denies n/v. Tolerating oral diet. Spinal wearing off. Pain well controlled. Denies cp/sob. Physical Exam Physical Exam: Gen: A&O x3 L leg: Dressing c/d/i. Able to do SLR. Distally fires EHL, FHL, tibant, GS. SILT dorsal and plantar aspects of foot. Toe w/wp. Results & Data ([facility]) Vital Signs (Past 12 Hours) Vital Signs Temp Pulse Pulse Pulse Resp BP Pulse Ox 07/26/22 14:24 82 16 123/70 95 07/26/22 13:53 36.4 C L 82 18 134/78 93 07/26/22 13:40 36.3 C L 84 16 130/76 93 07/26/22 13:25 36.4 C L 80 16 142/78 H 94 07/26/22 13:15 86 16 128/75 96 07/26/22 13:05 36.9 C 86 18 124/87 93 07/26/22 12:55 78 18 113/85 93 07/26/22 12:45 90 15 135/76 93 07/26/22 12:35 82 21 123/77 94 07/26/22 12:29 36.6 C 81 14 101/74 92 07/26/22 09:16 36.4 C L 81 20 171/84 H 95 O2 Del Method 07/26/22 14:24 Room Air 07/26/22 13:53 Room Air 07/26/22 13:40 Room Air 07/26/22 13:25 Room Air 07/26/22 13:15 Room Air 07/26/22 13:05 Room Air 07/26/22 12:55 Room Air 07/26/22 12:45 Room Air 07/26/22 12:35 Room Air 07/26/22 12:29 Room Air 07/26/22 09:16 Room Air Diagnostic Findings X-rays in PACU reviewed. HW in good position no complication.
[2022-07-26] MEDS: Scopolamine CHECK PATCH PLACEMENT SCH (17:06)
[2022-07-26] MEDS: ceFAZolin 2000MG 2,000 MG/15 ML SYR IV SCH (18:12)
[2022-07-26] MEDS ORDERED: TRANEXAMIC ACID / 0.7% NACL 1,000 MG/100 ML BAG IV SCH (18:30)
[2022-07-26] MEDS: CYANOCOBALAMIN (B-12) 500 MCG TABLET PO SCH (19:56)
[2022-07-26] MEDS: SENNA 8.6 MG TAB PO SCH (19:56)
[2022-07-26] MEDS: DOCUSATE SODIUM 100 MG CAP PO SCH (19:57)
[2022-07-26] MEDS: OMEGA-3 (PURIFIED FISH OIL) 1 GM CAP PO SCH (19:57)
[2022-07-26] MEDS: FINASTERIDE 5 MG TAB PO SCH (19:57)
[2022-07-26] MEDS: oxyCODONE HCL IR 5 MG TAB (IMMEDIATE RELEASE) PO PRN (20:03)
[2022-07-26] MEDS: ARTIFICIAL TEARS OP SCH (20:08)
[2022-07-26] MEDS ORDERED: NON-FORMULARY MEDICATION (Alpha Lipoic Acid 300 mg capsule) PO SCH (21:00)
[2022-07-26] MEDS ORDERED: [UNRECOGNIZED DRUG - MIXTURE] PO SCH (21:00)
[2022-07-26] MEDS ORDERED: [UNRECOGNIZED DRUG - OTHER] PO SCH (21:00)
[2022-07-26] MEDS ORDERED: ASPIRIN 81 MG ECTAB PO SCH (21:00)
[2022-07-27] MEDS: Scopolamine CHECK PATCH PLACEMENT SCH ×3 (01:50→16:10)
[2022-07-27] MEDS: ceFAZolin 2000MG 2,000 MG/15 ML SYR IV SCH (02:07)
[2022-07-27] MEDS: KETOROLAC TROMETHAMINE 15 MG/ML VIAL IV SCH ×2 (02:08→08:13)
[2022-07-27] MEDS: oxyCODONE HCL IR 5 MG TAB (IMMEDIATE RELEASE) PO PRN ×3 (02:13→20:37)
[2022-07-27] MEDS: ACETAMINOPHEN 500 MG TAB PO SCH ×3 (06:03→22:16)
[2022-07-27 06:31] LABS: Hematocrit (blood only) 37.3 % (42.0-52.0); Hemoglobin 12.8 g/dl (14.0-18.0); Mean Corpuscular Hemoglobin 31.7 pg (25.0-34.0); Mean Corpuscular Hgb Conc 34.3 g/dL (32.0-36.0); Mean Corpuscular Volume 92.3 fL (80.0-100.0); Mean Platelet Volume 11.9 fL (9.4-12.4); Platelet Count 151 K/uL (130-400); RDW Coefficient of Variation 12.1 % (11.5-14.5); RDW Standard Deviation 40.8 fL (36.4-46.3); Red Blood Count 4.04 M/uL (4.70-6.10); White Blood Count 15.96 K/ul (4.8-10.8)
[2022-07-27 07:22] LABS: BUN Creatinine Ratio 23.9 (10-20); Calcium 8.9 mg/dl (8.5-10.1); Creatinine Clr Calc Pharmacy 53.9 ml/min; Est GFR (African American) 72.4 ml/min; Est GFR (Non-African American) 62.4 ml/min; Potassium 4.7 mmol/L (3.5-5.1)
[2022-07-27] MEDS ORDERED: dexAMETHasone 4 MG TAB PO SCH (08:00)
[2022-07-27] MEDS: DOCUSATE SODIUM 100 MG CAP PO SCH ×2 (08:12→20:38)
[2022-07-27] MEDS: MULTIVITAMIN TAB PO SCH (08:12)
[2022-07-27] MEDS: amLODIPine BESYLATE 5 MG TAB PO SCH (08:12)
[2022-07-27] MEDS: ASPIRIN 81 MG ECTAB PO SCH ×2 (08:13→20:37)
[2022-07-27] MEDS: OMEGA-3 (PURIFIED FISH OIL) 1 GM CAP PO SCH ×2 (08:13→20:40)
[2022-07-27] MEDS: hydroCHLOROthiazide 25 MG TAB PO SCH (08:13)
[2022-07-27] MEDS: CYANOCOBALAMIN (B-12) 500 MCG TABLET PO SCH ×2 (08:13→20:38)
[2022-07-27] MEDS: ARTIFICIAL TEARS OP SCH ×2 (08:15→20:40)
[2022-07-27] MEDS ORDERED: [UNRECOGNIZED DRUG - OTHER] PO SCH (09:00)
[2022-07-27] MEDS: CHOLECALCIFEROL 1,000 UNITS 25 MCG TAB PO SCH (09:42)
--- NOTE | 2022-07-27 10:02 | Orthopedic Progress Note ---
Date of Service July 27, 2022 Assessment & Plan (1) Status post total knee replacement, left: Plan: Weightbearing as tolerated with walker assistance and immobilizer for first 48 hours postoperatively Pain control with p.o. medication DVT prophylaxis with aspirin and JUAN RAMON stockings Keep Silverlon dressing in place until 2-week follow-up Ice with easy wrap Plan is to discharge to [facility] for inpatient rehab first 2 weeks postoperatively Follow-up at [facility] orthopedics as previously scheduled With questions contact our clinic at [phone] Admission and Anticipated Discharge Date Admission Date: July 26, 2022 Subjective This 82-year-old male is day 1 status post left total knee arthroplasty. He states he is doing very well. He states that he essentially has no pain but thinks it may be due to the oxycodone he was given about an hour ago. States he is very pleased with the results of his surgery. He does have some achiness at the site where the tourniquet was placed. He states that he has been able to get up and move around the room with his walker. He states that he has been able to void without issue. He would like to be discharged to [facility] later today to do his rehab. His reason for going there is because that is where his resides. Currently he denies chest pain, shortness of breath, fever, chills, sweats, lethargy or numbness or tingling in his left lower extremity. He also denies nausea, vomiting or any diarrhea. Review of Systems Review of Systems: All systems reviewed & are unremarkable except as noted in Subjective Physical Exam Physical Exam: Left lower extremity: Outer dressing was removed. Silverlon is clean dry and intact. JUAN RAMON stockings was applied. Patient is able to perform an active straight leg raise test. He is able to actively dorsi and plantarflex foot without issue. He is able to actively extend to 0 degrees and flex his knee to about 75 degrees without pain. His quad strength is 3+ out of 5. He is neurovascularly intact in the left lower extremity. Results & Data ([facility]) Vital Signs (Past 12 Hours) Vital Signs Temp Pulse Pulse Resp BP Pulse Ox O2 Del Method 07/27/22 08:16 70 139/74 93 Room Air 07/27/22 08:05 36.4 C L 57 L 15 110/59 L 96 Room Air 07/27/22 03:00 36.8 C 60 18 120/66 96 Room Air 07/26/22 23:00 37 C 62 18 140/63 95 Room Air Diagnostic Findings Laboratory Results WBC 15.96 K/ul (4.8-10.8) H 07/27/22 05:56 RBC 4.04 M/uL (4.70-6.10) L 07/27/22 05:56 Hgb 12.8 g/dl (14.0-18.0) L 07/27/22 05:56 Hct 37.3 % (42.0-52.0) L 07/27/22 05:56 MCV 92.3 fL (80.0-100.0) 07/27/22 05:56 MCH 31.7 pg (25.0-34.0) 07/27/22 05:56 MCHC 34.3 g/dL (32.0-36.0) 07/27/22 05:56 RDW Std Deviation 40.8 fL (36.4-46.3) 07/27/22 05:56 RDW Coeff of Catina 12.1 % (11.5-14.5) 07/27/22 05:56 Plt Count 151 K/uL (130-400) 07/27/22 05:56 MPV 11.9 fL (9.4-12.4) 07/27/22 05:56 Sodium 138 mmol/L (136-145) 07/27/22 05:56 Potassium 4.7 mmol/L (3.5-5.1) 07/27/22 05:56 Chloride 106 mmol/L (98-107) 07/27/22 05:56 Carbon Dioxide 27 mmol/L (21-32) 07/27/22 05:56 Anion Gap 5 (3-11) 07/27/22 05:56 BUN 26 mg/dl (6-23) H 07/27/22 05:56 Creatinine 1.09 mg/dl (0.6-1.4) 07/27/22 05:56 Est Cr Clr Drug Dosing 53.9 ml/min 07/27/22 05:56 Est GFR ( Amer) 72.4 ml/min 07/27/22 05:56 Est GFR (Non-Af Amer) 62.4 ml/min 07/27/22 05:56 BUN/Creatinine Ratio 23.9 (10-20) H 07/27/22 05:56 Glucose 142 mg/dl (70-99(Fasting)) H 07/27/22 05:56 POC Glucose 137 mg/dl (70-99) H 07/26/22 09:06 Calcium 8.9 mg/dl (8.5-10.1) 07/27/22 05:56 SARS-CoV-2, RNA, NAAT NEGATIVE (NEGATIVE) 07/26/22 Unknown Impressions Knee X-Ray 07/26/22 12:32 LEFT KNEE 2 VIEWS History: Left total knee arthroplasty. Degenerative arthritis. Postop. FINDINGS: The patient is status post a left total knee arthroplasty. The hardware is intact. No fracture or dislocation. IMPRESSION: Left total knee arthroplasty. No evidence for hardware complication. ACT 112: Negative or not required by law. Electronically signed by: Oscar Pretty M.D. 07/26/2022 1:10 PM
--- NOTE | 2022-07-27 10:10 | Discharge Summary ---
Date of Service July 27, 2022 Admission HPI Per Admitting Provider History of Present Illness (including history relevant to procedure): Is a 82-year-old male presents clinic today for his preoperative history and physical. 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 Patient localizes most of his pain to the anterior medial aspect of the left knee. He states that time the pain does radiate proximally. He states is affecting his gait. He states that he has done physical therapy tried oral nonsteroidal agents and rest without significant relief. He has also had his knee aspirated and received corticosteroid injections without resolve. Patient states that he recently had to send his to [facility] because he is unable to care for her due to these issues. Review Of Systems: A 12 point review of systems is performed and is unremarkable except for those things stated in the HPI and past medical history. Past Medical History: Problems: Diabetes Irregular heartbeat Left knee pain Epidermal cyst Lipoma Inflamed seborrheic keratosis Keratosis, seborrheic Family history of melanoma Elevated cholesterol HTN (hypertension) Benign neoplasm of skin Procedure History Procedure Procedure Date Comments Rotator cuff repair Prostate - surgery Cataract Punch biopsy Esophageal dilator Allergies and Sensitivities: NKA Social history: Patient states that he occasionally consumes a glass of wine but denies tobacco or illicit drug use. Family history: Emphysema, heart disease, diabetes and stroke Current Home Meds: (Last Updated 07/04 09:45) amLODIPine (amLODIPine 5 mg oral tablet) 5 mg PO Daily ascorbic acid (Vitamin C) aspirin (Aspirin Low Dose 81 mg oral delayed release tablet) 81 mg PO Daily cholecalciferol (Vitamin D3 50 mcg (2000 intl units) oral tablet, chewable) cyanocobalamin (Vitamin B12) 1,000 mcg finasteride (finasteride 5 mg oral tablet) 5 mg PO Daily Women of childbearing age should not touch or handle broken tablets. Berna Umaña 04/17 09:38 hydroCHLOROthiazide (hydrochlorothiazide 12.5 mg oral tablet) 12.5 mg PO Daily 5 mg daily multivitamin with minerals (PreserVision oral tablet) 1 tab PO Daily multivitamin with minerals (One-A-Day Men 50 Plus) 1 tab PO Daily omega-3 polyunsaturated fatty acids (Fish Oil 1000 mg oral capsule) 1,000 mg PO bid saw palmetto (Prostate SR 320 mg oral capsule) 640 mg PO bid simvastatin (simvastatin 20 mg oral tablet) 20 mg PO qhs zinc sulfate (Zinc) Admission Exam Per Admitting Provider Physical Exam: (relevant to the procedure, including heart and lung evaluation) General: Alert and oriented x3 with proper grooming and hygiene Eyes: Pupils are equal and reactive to light with accommodation. Extraocular movements are intact Throat: Posterior oropharynx clear with absence of edema, erythema or exudate. Dentition is appropriate Cardiac: Regular rate and rhythm with no murmurs or gallops appreciated Lungs: Clear to auscultation throughout with no wheezing, rales or rhonchi Abdomen: Obese, nondistended, nontender with normal active bowel sounds Extremities: Left knee; range of motion is from a degrees of extension to 120 degrees of flexion. Patient experiences medial and lateral joint line tenderness when the knee is palpated in the flexed position. He has visible varus malalignment. His patella is nonmobile due to arthritic change within the patellofemoral joint. There is crepitation with passive range of motion. Otherwise he is neurovascularly intact in the left lower extremity. Neuro: Cranial nerves II through XII are intact with no motor or sensory deficit Skin: Normal in appearance with no open skin areas or discharge Principal Diagnosis Left knee osteoarthritis Discharge Exam Left lower extremity: Outer dressing was removed. Silverlon is clean dry and intact. JUAN RAMON stockings was applied. Patient is able to perform an active straight leg raise test. He is able to actively dorsi and plantarflex foot without issue. He is able to actively extend to 0 degrees and flex his knee to about 75 degrees without pain. His quad strength is 3+ out of 5. He is neurovascularly intact in the left lower extremity. Discharge Data Allergies Allergy/AdvReac Type Severity Reaction Status Date / Time No Known Allergies Allergy Verified 07/26/22 08:52 Procedures Performed Operation Date: 07/26/22 10:05 Actual Procedures p Left Total Knee Arthroplasty(Left) - Robb Hanson MD Ordered Studies 07/26/22 05:00 US - OR guided needle placemen Routine Hospital Course (1) Status post total knee replacement, left: Patient had an uneventful overnight stay following left total knee arthroplasty. He is very pleased with the results of the surgery. He is plan is to be discharged to [facility] to do his rehab for the first 2 weeks postoperatively. He wishes to go to a nursing home facility because his is a resident there. Weightbearing as tolerated with walker assistance and immobilizer for first 48 hours postoperatively Pain control with p.o. medication DVT prophylaxis with aspirin and JUAN RAMON stockings Keep Silverlon dressing in place until 2-week follow-up Ice with easy wrap Plan is to discharge to [facility] for inpatient rehab first 2 weeks postoperatively Follow-up at [facility] orthopedics as previously scheduled With questions contact our clinic at [phone] Total Time Total Time Spent Total Time Spent (In Minutes): 20 minutes Discharge Plan Discharge Items Patient Disposition: Transfer Inpatient Rehab Fac Reason For Visit: Left Knee Osteoarthritis Discharge Diagnosis: Left Knee Osteoarthritis Activity: As commented below Lifting: None Bathing: Keep incision dry Bathing Comment: may shower tomorrow Sexual Activity: Wait until after follow-up appointment Exercise/Sports: Wait until after follow-up appointment Driving/Machine Use: No driving until cleared by hr specialist Weightbearing: Left weightbearing Weightbearing Comment: as tolerated with walker and immobilizer for 48 hrs Non-emergency contact: Surgeon Call non-emergency contact if: you have any medication questions, your pain is not controlled, your temperature is above 101.5, your wound has increased drainage and your wound pain has increased Follow-up/Referrals: Ludin Downey MD [Primary Care Provider] - Diet: Heart Healthy Addtl Attending Provider Instructions: Post-operative Instructions Dear Patient and Family/Friends, Before you are discharged from the hospital, it is important to know what to expect when you get home after surgery. To that end, we have created this sheet of discharge instructions which covers many commonly asked questions. Make sure you go through this sheet in its entirety with your nurse before you are discharged. Please note that we will go over the specifics of your surgery and recovery when you return for your first post-operative visit. Sincerely, Dr. Hanson Medications 1. Oxycodone 5 mg: take 1-2 tab every 4-6 hours as needed for pain relief. A prescription will be sen to your pharmacy. 2. Diclofenac Sodium 75 mg: take 1 tab twice daily for 30 days post operatively for pain and inflammation relief. This will also be sent to your pharmacy with 1 refill. 3. Aspirin 81 mg: take 1 tab twice daily for 30 days post operatively for blood clot prevention. Please purchase. 4. Extra Strength Tylenol 500 mg: take 2 tabs every 6-8 hour as needed for additional pain relief. Please purchase. Pain Expect to be in a fair amount of pain after surgery. Remember, our goal is not to eliminate your pain, but to make it tolerable. It is a good idea to stay ahead of your pain by taking the medications you were prescribed once you get home. Typically, the pain starts improving 3-7 days after surgery. You should start weaning off the narcotic pain medication (oxycodone, hydrocodone, hydromorphone, morphine) as soon as your pain improves. Please call our office if your pain is not adequately controlled. Ice Ice your operative site at least 5 times a day for 15-30 minutes at a time. Make sure you have a thin cloth between the ice or cooling unit and your skin to prevent chakraborty bite. This is especially important if you received a nerve block. Continue icing your operative site for the first 5-7 days after surgery, then as needed. Diet/Nausea/Vomiting Start by drinking clear liquids and eating crackers. If you can tolerate this, then you may resume your normal diet. If you feel nauseated or vomit, take Zofran/ondansetron (if prescribed). Please call our office if you have intractable nausea or vomiting, or, if after hours, you may go to the Emergency Room for help. Constipation Constipation is a common side effect of narcotic pain medication. If you have not had a bowel movement within 2 days after surgery, we recommend purchasing an over the counter laxative such as Milk of Magnesia, Dulcolax, or Miralax from a local pharmacy, and taking it as instructed. Call our clinic if any questions. Slings and Braces If you were placed in a sling or brace, it must be worn at all times, including sleep. You may remove your sling or brace for physical therapy, home exercises, and showering. The length of time you will be in your brace and range of motion restrictions depends on what surgery you had; these details will be reviewed at your first post-operative appointment. Nerve block The anesthesia team sometimes places a nerve block to help with post-operative pain control. This results in significant numbness and inability to move the extremity. The nerve block usually wears off in 8-12 hours, but sometimes can last up to 24 hours. Please call our office if you are still unable to move your extremity after 24 hours, unless you received a pain pump to take home. Nerve blocks typically wear off quickly, so start taking pain medication as soon as you start feeling soreness near your surgical site. Weight bearing and Range of Motion. Do not bear any weight through your operative extremity immediately after surgery. If you had upper extremity surgery, do not lift anything with that arm. If you are in a knee brace, keep it locked in place until your follow-up. We will discuss your weight bearing, range of motion, and lifting restrictions in detail at your first post-operative appointment. Continuous Passive Motion (CPM) Machine If you were prescribed a CPM machine, it will start after your first post- operative appointment, at which time we will give you instructions on the range of motion settings and duration of treatment Physical therapy You will be given a prescription for physical therapy or occupational therapy at your first post-operative appointment. Typically, patients start therapy within 1 week of surgery Wound care and showering We will inspect your wound at your first post-operative visit, and may do a dressing change at that time. Most patients will be in a water-proof dressing that is removed 14 days after surgery. It is normal to see some dried blood on the dressing. Do not remove your dressing, paper strips or sutures yourself unless you are given permission. Showering is allowed the day after surgery. Do not scrub or remove any dressings. The wound should not be submerged underwater (i.e. in a bathtub or pool) until 4 weeks after surgery JUAN RAMON stockings If you were given white stockings, these are to be worn at all times except to shower (on both legs) for the first 2 weeks after surgery. Driving You may not drive while taking narcotic pain medication or while in a cast, splint, sling or brace. You, the patient, need to make the final determination about when you are safe to drive, however, the earliest you may consider driving after surgery is below: Hand/Wrist/Elbow Surgery: 3 days Shoulder Surgery: 2 weeks Hip,/Knee/Ankle Surgery: 4 weeks Fracture repair: 6 weeks Return to Work Your return to work depends on what surgery was done and what type of work you do. Please bring any paperwork your employer needs completed to your first po st-operative visit. Also, bring a description of your job duties, as this helps us to understand what risks you may face at work. Travel Avoid long distance travel (greater than 1 hour) in airplanes and cars for the first 6 weeks after surgery. If you must travel, you need to have a Doppler ultrasound done before you travel to rule out a blood clot in your legs. Follow-up You should have a follow-up appointment already scheduled 1-2 days after surgery. If not, please contact our office to make this appointment before you leave the hospital. When to call the office It is normal to have swelling and bruising in the limb that was operated on. This will improve with time. It is also normal to have fevers for the first 2 days after surgery. Reasons you should call your doctor include: Uncontrolled pain; Nausea, vomiting, or constipation that does not improve with medication; Fevers over 101.5, chills, sweats; Drainage or bleeding from the wound; Foul odor; Spreading areas of redness; Any other concerns Pending Studies at Discharge: No Stand-Alone Forms: My [facility] [employer], Smoking Cessation Skilled Items Patient informed of condition?: Yes DNR: Yes Discharge Level of Care: Acute rehab Communicable Disease: No Discharge Prognosis: Stable Lines: None Urinary Catheter: No Medications and DC Order Prescriptions: New acetaminophen [Tylenol Extra Strength] 500 mg Tablet 1,000 mg PO Q8 30 Days Qty: 180 0RF aspirin 81 mg Tablet,Delayed Release (Dr/Ec) 81 mg PO BID 30 Days Qty: 60 0RF oxycodone 5 mg Tablet 5 - 10 mg PO Q4H PRN (Reason: Postoperative pain control) Qty: 28 0RF diclofenac sodium 75 mg tablet,delayed release (DR/EC) 75 mg PO BID 30 Days Qty: 60 1RF Continued multivitamin [Daily Multi-Vitamin] tablet 1 tab PO QAM amlodipine 5 mg tablet 5 mg PO QAM Prostate SR 160-250 mg capsule 2 cap PO BID vit C,E,Zn,Lg-ihfwo0-obl-zeax 250-2.5-0.5 mg capsule 2 cap PO BID omega-3 fatty acids [[place]-3] 2 tab PO BID k-m mineral 1 tsp PO QAM mecobalamin (vitamin B12) 1,000 mcg tablet,disintegrating 1,000 mcg sublingual BID Rx Instructions: place tablet under tongue and allow to dissolve for at least30 secs before swallowing cholecalciferol (vitamin D3) 50 mcg (2,000 unit) capsule 50 mcg PO Q OTHER DAY ascorbic acid (vitamin C) [Vitamin C With Colleen Hips] 1,000 mg tablet 1 g PO Q OTHER DAY zinc gluconate-vitamin C [zinc] 1 tab PO WK peg 400-propylene glycol [Systane Ultra] 2 drp ophthalmic (eye) BID alpha lipoic acid 300 mg capsule 300 mg PO BID finasteride 5 mg tablet 5 mg PO HS Qty: 90 3RF hydrochlorothiazide 12.5 mg tablet 12.5 mg PO QAM Discontinued aspirin 81 mg tablet,delayed release (DR/EC) 81 mg PO HS Discharge Orders: Discharge Order (Routine); Ordered 07/27/22 Ordered By: Gustavo Schultz Admission Data Admit Date/Time: 07/26/22 12:29 Attending Provider: Robb Hanson Admit Provider: Robb Hanson Primary Care Provider: Ludin Downey Other Providers: Orlando Amezquita Dalton
[2022-07-27] MEDS: SENNA 8.6 MG TAB PO SCH (20:39)
[2022-07-27] MEDS: FINASTERIDE 5 MG TAB PO SCH (20:39)
[2022-07-28] MEDS: Scopolamine CHECK PATCH PLACEMENT SCH ×4 (00:01→23:35)
[2022-07-28] MEDS: ACETAMINOPHEN 500 MG TAB PO SCH ×3 (05:50→22:59)
[2022-07-28] MEDS: oxyCODONE HCL IR 5 MG TAB (IMMEDIATE RELEASE) PO PRN (05:59)
[2022-07-28] MEDS: OMEGA-3 (PURIFIED FISH OIL) 1 GM CAP PO SCH ×2 (08:15→20:17)
[2022-07-28] MEDS: hydroCHLOROthiazide 25 MG TAB PO SCH (08:16)
[2022-07-28] MEDS: CYANOCOBALAMIN (B-12) 500 MCG TABLET PO SCH ×2 (08:16→20:16)
[2022-07-28] MEDS: DOCUSATE SODIUM 100 MG CAP PO SCH ×2 (08:16→20:17)
[2022-07-28] MEDS: ASPIRIN 81 MG ECTAB PO SCH ×2 (08:16→20:16)
[2022-07-28] MEDS: amLODIPine BESYLATE 5 MG TAB PO SCH (08:16)
[2022-07-28] MEDS: MULTIVITAMIN TAB PO SCH (08:16)
[2022-07-28] MEDS: ARTIFICIAL TEARS OP SCH ×2 (08:17→20:18)
[2022-07-28] MEDS ORDERED: ASCORBIC ACID 500 MG TAB PO SCH (09:00)
[2022-07-28] MEDS: FINASTERIDE 5 MG TAB PO SCH (20:17)
[2022-07-28] MEDS: SENNA 8.6 MG TAB PO SCH (20:18)
[2022-07-29] MEDS: ACETAMINOPHEN 500 MG TAB PO SCH (05:43)
[2022-07-29 07:42] VITALS: PULSE 69; TEMP 98.1; O2SAT 97
[2022-07-29] MEDS: MULTIVITAMIN TAB PO SCH (08:26)
[2022-07-29] MEDS: DOCUSATE SODIUM 100 MG CAP PO SCH (08:26)
[2022-07-29] MEDS: OMEGA-3 (PURIFIED FISH OIL) 1 GM CAP PO SCH (08:26)
[2022-07-29] MEDS: amLODIPine BESYLATE 5 MG TAB PO SCH (08:26)
[2022-07-29] MEDS: CHOLECALCIFEROL 1,000 UNITS 25 MCG TAB PO SCH (08:27)
[2022-07-29] MEDS: ARTIFICIAL TEARS OP SCH (08:27)
[2022-07-29] MEDS: ASPIRIN 81 MG ECTAB PO SCH (08:27)
[2022-07-29] MEDS: CYANOCOBALAMIN (B-12) 500 MCG TABLET PO SCH (08:27)
[2022-07-29] MEDS: hydroCHLOROthiazide 25 MG TAB PO SCH (08:27)
[2022-07-29 09:41] VITALS: BP 127/71
== END 2022-07-29 10:01 ==
LOC: ASU 08:23 → 3E 08:23

== ENCOUNTER 2023-11-08 21:53 | Observation (INO) ==
[2023-11-08 22:36] LABS: Basophils # (auto) 0.05 K/uL (0.00-0.20); Basophils % (auto) 0.6 %; Eosinophils # (auto) 0.11 K/uL (0.00-0.50); Eosinophils % (auto) 1.4 %; Hematocrit (blood only) 46.2 % (42.0-52.0); Hemoglobin 15.6 g/dl (14.0-18.0); Immature Granulocytes # (auto) 0.03 K/uL (0.01-0.20); Immature Granulocytes % (auto) 0.4 %; Lymphocytes # (auto) 1.84 K/uL (1.20-3.40); Lymphocytes % (auto) 23.6 %; Mean Corpuscular Hemoglobin 30.4 pg (25.0-34.0); Mean Corpuscular Hgb Conc 33.8 g/dL (32.0-36.0); Mean Corpuscular Volume 90.1 fL (80.0-100.0); Mean Platelet Volume 11.9 fL (9.4-12.4); Monocytes # (auto) 0.89 K/uL (0.11-0.59); Monocytes % (auto) 11.4 %; Neutrophils # (auto) 4.89 K/uL (1.40-6.50); Neutrophils % (auto) 62.6 %; Platelet Count 174 K/uL (130-400); RDW Coefficient of Variation 12.7 % (11.5-14.5); RDW Standard Deviation 42.1 fL (36.4-46.3); Red Blood Count 5.13 M/uL (4.70-6.10); White Blood Count 7.81 K/ul (4.8-10.8)
[2023-11-08 22:54] LABS: Albumin Globulin Ratio 1.6 (0.9-2); Albumin Level 4.4 gm/dl (3.4-5.0); BUN Creatinine Ratio 28.4 (10-20); Bilirubin,Total 0.4 mg/dl (0.2-1.0); Calcium 9.3 mg/dl (8.6-10.3); Creatinine Clr Calc Pharmacy 59.8 ml/min; Est GFR (African American) 84.9 ml/min; Est GFR (Non-African American) 73.2 ml/min; Globulin 2.8 gm/dl (2.5-4.0); Potassium 3.6 mmol/L (3.5-5.1); Total Protein 7.2 gm/dl (6.0-8.3)
[2023-11-08 23:00] LABS: Troponin I High Sensitivity 25.2 pg/ml (0-20)
--- NOTE | 2023-11-09 00:01 | History & Physical Report ---
Date of Service November 09, 2023 Assessment & Plan (1) Exertional chest pain: Plan: Pt is a 83 yo male with PMH of LBBB, HTN, diabetes, BPH, and HLD presenting to the ER d/t chest pain. Exertional chest pain - hx of LBBB for which pt follows with cardiology; last visit 04/2023 - EKG upon admission unchanged from prior; NSR, LBBB still present - CXR WNL - lab work significant for no leukocytosis, no anemia, BMP WNL, trop 25.2 with repeat 25.1- will repeat trop again in 6hrs - last echo 2020 showed EF 50-55%, moderate LVH, and sclerotic AV; echo ordered - per last cardiology note, pt has had negative stress testing in the past; recommend consideration of outpatient stress test if inpatient testing WNL HTN - continue home HCTZ 12.5 mg and amlodipine 5 mg daily BPH - continue home finasteride 5 mg HS DM - last A1c 7.1% 06/2023 - no home medications - as A1c within goal, will not add basal or SSI Diet: heart healthy DVT ppx: lovenox Code: DNR/DNI Dispo: admit to med/tele (2) Left bundle branch block: (3) Hypertension: (4) Type 2 diabetes mellitus without complications: (5) Situational stress: (6) BPH (benign prostatic hyperplasia): History of Present Illness Chief Complaint: chest pain Primary Care Provider: Ludin Downey MD Pt is a 83 yo male with PMH of LBBB, HTN, diabetes, BPH, and HLD presenting to the ER d/t chest pain. Pt explains that he has had exertional chest pressure for the last 1.5 mths. This pressure only occurs with exertion. It has not been worsening. He has no hx of SC or stroke; he does have a long standing (~50 yrs) hx of LBBB which is being followed by Dr. Saab. He denies any associated symptoms- SOB, chest pain, radiation of pain, N/V/abdominal pain, diaphoresis, etc. The pt has been under a lot of stress related to his who has progressing dementia. She was recently placed into a memory care unit. Pt believes this could be contributing to his chest pressure. In the ER, pt was not given any medications. Allergies Allergy/AdvReac Type Severity Reaction Status Date / Time No Known Allergies Allergy Verified 11/09/23 00:37 Home Medications Medication Instructions Recorded Confirmed Type multivitamin (Daily Multi-Vitamin 1 tab PO QAM 02/06/19 11/09/23 History tablet) alpha lipoic acid 300 mg capsule 300 mg PO BID 04/25/21 11/09/23 History k-m mineral 1 tsp PO QAM 04/25/21 11/09/23 History saw palmetto fruit extract 160 1 cap PO BID 08/08/22 11/09/23 History mg-phytosterol cmb.no.2 250 mg capsule (Prostate SR) aspirin 81 mg tablet,delayed 81 mg PO DAILY #30 tabs 10/02/22 11/09/23 Rx release (Adult Aspirin Regimen) cholecalciferol (vitamin D3) 50 50 mcg PO MOWEFR 10/02/22 11/09/23 History mcg (2,000 unit) capsule pantoprazole 40 mg tablet,delayed 40 mg PO DAILY PRN Acid Reflux 01/01/23 11/09/23 History release amlodipine 5 mg tablet 5 mg PO QAM #90 tabs 09/23/23 11/09/23 Rx hydrochlorothiazide 12.5 mg tablet 12.5 mg PO QAM #90 tabs 09/23/23 11/09/23 Rx ascorbic acid (vitamin C) 250 mg 250 mg PO Q OTHER DAY 11/09/23 11/09/23 History chewable tablet cyanocobalamin (vitamin B-12) 1,000 mcg PO BID 11/09/23 11/09/23 History 1,000 mcg tablet (Vitamin B-12) omega-3 fatty acids 1,000 mg 0 mg PO DAILY 11/09/23 11/09/23 History capsule peg 400-propylene glycol 0.4 %-0.3 2 drp ophthalmic (eye) BID 11/09/23 11/09/23 History % eye drops (Systane Ultra) zinc gluconate 50 mg tablet 50 mg PO DAILY 11/09/23 11/09/23 History Past Med/Surg History Problem List (Updated 11/09/23 @ 01:05 by Crow Ceballos MD) Chest pain (Acute) Exertional chest pain BPH (benign prostatic hyperplasia) Sinusitis Sleep disorder GERD (gastroesophageal reflux disease) Status post total knee replacement, left Osteoarthritis of left knee Organic impotence (Acute) Benign localized hyperplasia of prostate with urinary obstruction (Acute) Left bundle branch block Effusion, left knee Osteoarthritis of left knee Hypertension Nocturia Mixed hyperlipidemia Type 2 diabetes mellitus without complications Kidney stones Situational stress Derangement of medial meniscus due to injury Medical History Encounter for pre-operative examination Organic impotence Borderline diabetes mellitus Diet controlled Osteoarthritis LBBB (left bundle branch block) follows with Dr. Saab Mixed hyperlipidemia Hypertension Greater trochanteric bursitis of left hip Knee injury Nephrolithiasis Surgical History History of esophagogastroduodenoscopy (EGD) History of tooth extraction History of colonoscopy H/O rotator cuff surgery Left H/O lithotripsy S/P cataract extraction R/L S/P tonsillectomy Family History Mother Hypertension Father Emphysema of lung History of open heart surgery Sister Ramila Denies family history of Ovarian cancer Prostate cancer Diabetes Myocardial infarction Breast cancer Colorectal cancer Social History Smoking Status: Never smoker Tobacco Type: Cigarettes Age Started Using Tobacco: 16; Age Quit Using Tobacco: 18; Cigarettes Per Day: 1-2 per day; Second Hand Exposure: No; Do You Dip or Chew Tobacco: No; Hx Alcohol Use: Yes Alcohol type: wine Alcohol Intake Frequency: Monthly or Less Hx Substance Use: No Preferred Language: Japanese Communication Ability: Effective Visual Impairment: Limited Hearing Ability: Hard of Hearing Fire Prevention Chief Required: No Beliefs That Will Affect Care: None marital status: Current Living Situation: Alone current occupational status: retired How many Children do You have: 2 Other Information That Helps Us Care for You: No Feels Safe at Home: Yes Safety Concerns: Feels Safe At This Time Childhood Exposure to Second-Hand Smoke: No Diet: diabetic caffeine: Yes during the past year weight has: remained stable Dental Care, Regularly: Yes Physical Activity Frequency: 3-4 Times per Week Seatbelt Use: always Sunscreen Use: Yes Do you think of yourself as: straight/heterosexual Assistive Devices: Walker Review of Systems Review of Systems: As per HPI Physical Exam Constitutional: NAD, hypertensive, otherwise vitals WNL. Eyes: Conjunctivae normal. Respiratory: CTA bilaterally. Non labored breathing. No rhonchi, wheezing, or crackles. Cardiovascular: RRR. No murmurs noted. No LE edema. Gastrointestinal (Abdomen): Nontender, +BS. No masses noted. Skin: No rashes or skin lesions noted. Neurologic: Sensation grossly intact. No FND appreciated. Psychiatric: Speech of normal pace and content. Mood and affect congruent. Results & Data Results & Data Vital Signs (Past 12 Hours) Vital Signs Temp Pulse Pulse Resp BP BP Pulse Ox 11/08/23 22:53 73 18 148/85 H 91 11/08/23 22:11 85 11/08/23 22:00 11/08/23 21:55 36.6 C 81 17 186/98 H 96 11/08/23 21:54 O2 Del Method 11/08/23 22:53 Room Air 11/08/23 22:11 11/08/23 22:00 Room Air 11/08/23 21:55 Room Air 11/08/23 21:54 Room Air Supervising Physician Co-Signing Physician Notes Attending addendum: I have physically seen this patient, have supervised the medical residents activities, and agree with the H&P unless as otherwise noted. Assessment and Plan: Exertional chest pain/elevated troponin/history LBBB- The patient will be admitted to telemetry for serial cardiac enzymes, serial EKG's, cardiac rhythm monitoring and a 2-D echocardiogram with Dopplers. Troponin 25.2 Most recent echo 01/14 with EF 55-55% and left bundle branch block Continue amlodipine 5 mg daily, asked him 81 mg daily On HCTZ 12.5 mg, with borderline potassium 3.6, will need supplementation on an ongoing basis Consult cardiology Diabetes mellitus- Glucose 211 on admission most recent hemoglobin A1c on 07/20 Placed on Accu-Cheks with NovoLog SSI GERD- Continue pantoprazole, change to scheduled while inpatient Resident Activity Tracking Resident Involvement: Resident Care Provided Care Provided: Adult Hospital Medicine
[2023-11-09] MEDS ORDERED: ONDANSETRON INJ 2 MG/ML 2 ML VIAL IV PRN (00:44)
[2023-11-09] MEDS ORDERED: ACETAMINOPHEN 325 MG TAB PO PRN (00:44)
--- NOTE | 2023-11-09 01:05 | Emergency Department Note ---
History of Present Illness General Chief Complaint: Chest Pain Stated Complaint: CHEST PAINS Time Seen by Provider: 11/08/23 22:24 History of Present Illness Provider Complaint: chest pain Onset (ago): day(s) 2 Duration: intermittent Onset: during exertion Pain Location: substernal Pain Radiation: none Severity: moderate Maximum Pain Intensity: 6 Current Pain Intensity: 0 Quality: + tightness Relieved By: + rest Exacerbated By: + exertion Context: + other (Has been under stress.); no recent illness, no recent surgery, no recent immobilization, no recent travel, no trauma/injury, no new medications or no history of DVT/PE Associated symptoms: + dyspnea; no nausea, no vomiting, no diaphoresis, no syncope, no palpitations, no fever, no cough or no leg swelling Home Medications Medication Instructions Recorded Confirmed Type multivitamin (Daily Multi-Vitamin 1 tab PO QAM 02/06/19 11/09/23 History tablet) alpha lipoic acid 300 mg capsule 300 mg PO BID 04/25/21 11/09/23 History k-m mineral 1 tsp PO QAM 04/25/21 11/09/23 History saw palmetto fruit extract 160 1 cap PO BID 08/08/22 11/09/23 History mg-phytosterol cmb.no.2 250 mg capsule (Prostate SR) aspirin 81 mg tablet,delayed 81 mg PO DAILY #30 tabs 10/02/22 11/09/23 Rx release (Adult Aspirin Regimen) cholecalciferol (vitamin D3) 50 50 mcg PO MOWEFR 10/02/22 11/09/23 History mcg (2,000 unit) capsule pantoprazole 40 mg tablet,delayed 40 mg PO DAILY PRN Acid Reflux 01/01/23 11/09/23 History release amlodipine 5 mg tablet 5 mg PO QAM #90 tabs 09/23/23 11/09/23 Rx hydrochlorothiazide 12.5 mg tablet 12.5 mg PO QAM #90 tabs 09/23/23 11/09/23 Rx ascorbic acid (vitamin C) 250 mg 250 mg PO Q OTHER DAY 11/09/23 11/09/23 History chewable tablet cyanocobalamin (vitamin B-12) 1,000 mcg PO BID 11/09/23 11/09/23 History 1,000 mcg tablet (Vitamin B-12) omega-3 fatty acids 1,000 mg 0 mg PO DAILY 11/09/23 11/09/23 History capsule peg 400-propylene glycol 0.4 %-0.3 2 drp ophthalmic (eye) BID 11/09/23 11/09/23 History % eye drops (Systane Ultra) zinc gluconate 50 mg tablet 50 mg PO DAILY 11/09/23 11/09/23 History Allergies Allergy/AdvReac Type Severity Reaction Status Date / Time No Known Allergies Allergy Verified 11/09/23 00:37 Past Med/Surg History Problem List (Updated 11/09/23 @ 01:05 by Crow Ceballos MD) Chest pain (Acute) Exertional chest pain BPH (benign prostatic hyperplasia) Sinusitis Sleep disorder GERD (gastroesophageal reflux disease) Status post total knee replacement, left Osteoarthritis of left knee Organic impotence (Acute) Benign localized hyperplasia of prostate with urinary obstruction (Acute) Left bundle branch block Effusion, left knee Osteoarthritis of left knee Hypertension Nocturia Mixed hyperlipidemia Type 2 diabetes mellitus without complications Kidney stones Situational stress Derangement of medial meniscus due to injury Medical History Encounter for pre-operative examination Organic impotence Borderline diabetes mellitus Diet controlled Osteoarthritis LBBB (left bundle branch block) follows with Dr. Saab Mixed hyperlipidemia Hypertension Greater trochanteric bursitis of left hip Knee injury Nephrolithiasis Surgical History History of esophagogastroduodenoscopy (EGD) History of tooth extraction History of colonoscopy H/O rotator cuff surgery Left H/O lithotripsy S/P cataract extraction R/L S/P tonsillectomy Family History Mother Hypertension Father Emphysema of lung History of open heart surgery Sister Ramila Denies family history of Ovarian cancer Prostate cancer Diabetes Myocardial infarction Breast cancer Colorectal cancer Social History Smoking Status: Never smoker Tobacco Type: Cigarettes Age Started Using Tobacco: 16; Age Quit Using Tobacco: 18; Cigarettes Per Day: 1-2 per day; Second Hand Exposure: No; Do You Dip or Chew Tobacco: No; Hx Alcohol Use: Yes Alcohol type: wine Alcohol Intake Frequency: Monthly or Less Hx Substance Use: No Preferred Language: Arabic Communication Ability: Effective Visual Impairment: Limited Hearing Ability: Hard of Hearing Educational Fundraising Director Required: No Beliefs That Will Affect Care: None marital status: Current Living Situation: Alone current occupational status: retired How many Children do You have: 2 Feels Safe at Home: Yes Childhood Exposure to Second-Hand Smoke: No Diet: diabetic caffeine: Yes during the past year weight has: remained stable Dental Care, Regularly: Yes Physical Activity Frequency: 3-4 Times per Week Seatbelt Use: always Sunscreen Use: Yes Do you think of yourself as: straight/heterosexual Assistive Devices: Walker Physical Exam Vital Signs Vital Signs - 24 hr 11/08/23 21:54 11/08/23 21:55 11/08/23 22:00 Temperature 36.6 C Temperature Source Temporal Artery Scan Pulse Rate 81 Pulse Rate [Apical] Pulse Rhythm Regular Pulse Strength Normal Respiratory Rate 17 Respiratory Effort / Characteristics Non-Labored Spontaneous Respiratory Depth Normal Respiratory Pattern Regular Blood Pressure 186/98 H Blood Pressure [Right Arm] Blood Pressure Mean 127 Blood Pressure Mean [Right Arm] Blood Pressure Position Sitting Pulse Oximetry 96 Oxygen Delivery Method Room Air Room Air Room Air Sepsis Recent Fever Within 48 Hours No Sepsis New/Unexplained Change in Mental Status N/A Sepsis Action Taken by Nursing No Action Required 11/08/23 22:11 11/08/23 22:53 Temperature Temperature Source Pulse Rate 85 Pulse Rate [Apical] 73 Pulse Rhythm Pulse Strength Respiratory Rate 18 Respiratory Effort / Characteristics Non-Labored Spontaneous Respiratory Depth Normal Respiratory Pattern Blood Pressure Blood Pressure [Right Arm] 148/85 H Blood Pressure Mean Blood Pressure Mean [Right Arm] 106 Blood Pressure Position Pulse Oximetry 91 Oxygen Delivery Method Room Air Sepsis Recent Fever Within 48 Hours Sepsis New/Unexplained Change in Mental Status Sepsis Action Taken by Nursing Physical Exam GENERAL: oriented to person, place, and time. appears well-developed and well- nourished. HENT: Exam performed. - Head: Normocephalic and atraumatic. EYES: Conjunctivae and EOM are normal. Right eye exhibits no discharge. Left eye exhibits no discharge. No scleral icterus. NECK: Normal range of motion. Neck supple. No JVD present. CV: Normal rate, regular rhythm, normal heart sounds and intact distal pulses. There is no peripheral edema. Palpable radial pulses bue. PULM/CHEST: Effort normal and breath sounds normal. No respiratory distress. No stridor. no wheezes. no rales. ABD: The abdomen is soft. There is no tenderness. NEURO: Motor and sensation grossly intact. SKIN: Skin is warm and dry. He is not diaphoretic. PSYCH: normal mood and affect. Behavior is normal. Judgment and thought content normal. Course Course 2224: The patient was evaluated in room C1. A complete history and physical exam was performed Cardiac monitoring: An order was placed for continuous cardiac monitoring. The monitor shows a rate of 80 with sinus rhythm interpreted by wa 2325: Vital signs stable. Labs are significant for high-sensitivity troponin of 25.2. [facility] pain rule out ACS. Dr. Richardson's team notified. Medical Decision Making Laboratory Data Attestation: I reviewed the patient's lab results. 11/08/23 22:13 11/08/23 22:13 Labs: Lab Results 11/08/23 11/09/23 Range/Units 22:13 00:05 WBC 7.81 (4.8-10.8) K/ul RBC 5.13 (4.70-6.10) M/uL Hgb 15.6 (14.0-18.0) g/dl Hct 46.2 (42.0-52.0) % MCV 90.1 (80.0-100.0) fL MCH 30.4 (25.0-34.0) pg MCHC 33.8 (32.0-36.0) g/dL RDW Std Deviation 42.1 (36.4-46.3) fL RDW Coeff of Catina 12.7 (11.5-14.5) % Plt Count 174 (130-400) K/uL MPV 11.9 (9.4-12.4) fL Immature Gran % (Auto) 0.4 % Neut % (Auto) 62.6 % Lymph % (Auto) 23.6 % Kay % (Auto) 11.4 % Eos % (Auto) 1.4 % Baso % (Auto) 0.6 % Neut # (Auto) 4.89 (1.40-6.50) K/uL Lymph # (Auto) 1.84 (1.20-3.40) K/uL Kay # (Auto) 0.89 H (0.11-0.59) K/uL Eos # (Auto) 0.11 (0.00-0.50) K/uL Baso # (Auto) 0.05 (0.00-0.20) K/uL Immature Gran # (Auto) 0.03 (0.01-0.20) K/uL Sodium 140 (136-145) mmol/L Potassium 3.6 (3.5-5.1) mmol/L Chloride 105 (98-107) mmol/L Carbon Dioxide 28 (21-32) mmol/L Anion Gap 7 (3-11) BUN 27 H (6-23) mg/dl Creatinine 0.95 (0.6-1.4) mg/dl Est Cr Clr Drug Dosing 59.8 ml/min Est GFR ( Amer) 84.9 ml/min Est GFR (Non-Af Amer) 73.2 ml/min BUN/Creatinine Ratio 28.4 H (10-20) Glucose 211 H (70-99(Fasting)) mg/dl Calcium 9.3 (8.6-10.3) mg/dl Magnesium 2.0 (1.7-2.4) mg/dl Total Bilirubin 0.4 (0.2-1.0) mg/dl AST 21 (13-39) U/L ALT 19 (7-52) U/L Alkaline Phosphatase 76 (34-104) U/L Troponin I High Sens 25.2 H 25.1 H (0-20) pg/ml Total Protein 7.2 (6.0-8.3) gm/dl Albumin 4.4 (3.4-5.0) gm/dl Globulin 2.8 (2.5-4.0) gm/dl Albumin/Globulin Ratio 1.6 (0.9-2) Lipase 21 (11-82) U/L Imaging Data Chest x-ray: Attestation: I personally reviewed and interpreted this imaging study as follows: My impression: Chest x-ray negative. Airway clear. No pneumothorax. No consolidation. No cardiomegaly or cephalization.. No free air under the diaphragm. No fractures of the skeletal structures. ECG Data Attestation: I personally reviewed and interpreted this ECG as follows: Additional Comments: Sinus rhythm with a rate of 76. VT 154 QRS 148 QTc 447. Left bundle branch block present. Sgarbossa negative. [facility] Narrative 2224: The patient was evaluated in room C1. A complete history and physical exam was performed Cardiac monitoring: An order was placed for continuous cardiac monitoring. The monitor shows a rate of 80 with sinus rhythm interpreted by me 2325: Vital signs stable. Labs are significant for high-sensitivity troponin of 25.2. Patient be admitted to the [facility] hospitalist team for chest pain rule out ACS. Dr. Richardson's team notified. Impression & Plan Chest pain Discharge Plan Visit Data Chief Complaint: Chest Pain Stated Complaint: CHEST PAINS ED Provider: Crow Ceballos Discharge Problem: Chest pain Patient Disposition: Being Evaluated by Hospitalist Forms Stand Alone Forms: My [facility] Prescriptions Prescriptions: No Action hydrochlorothiazide 12.5 mg tablet 12.5 mg PO QAM Qty: 90 3RF amlodipine 5 mg tablet 5 mg PO QAM Qty: 90 3RF multivitamin [Daily Multi-Vitamin] tablet 1 tab PO QAM k-m mineral 1 tsp PO QAM alpha lipoic acid 300 mg capsule 300 mg PO BID Prostate SR 160-250 mg capsule 1 cap PO BID Patient Comments: CONFIRMED W/ PT 08/08 cholecalciferol (vitamin D3) 50 mcg (2,000 unit) capsule 50 mcg PO MOWEFR aspirin [Adult Aspirin Regimen] 81 mg tablet,delayed release (DR/EC) 81 mg PO DAILY Qty: 30 2RF pantoprazole 40 mg tablet,delayed release (DR/EC) 40 mg PO DAILY PRN (Reason: Acid Reflux) omega-3 fatty acids [Fish Oil Concentrate] 1,000 mg Capsule 0 mg PO DAILY cyanocobalamin (vitamin B-12) [Vitamin B-12] 1,000 mcg Tablet 1,000 mcg PO BID Rx Instructions: Chewable tab ascorbic acid (vitamin C) [Vitamin C With Colleen Hips] 250 mg Tablet,Chewable 250 mg PO Q OTHER DAY zinc gluconate 50 mg Tablet 50 mg PO DAILY Systane Ultra 0.4-0.3 % Drops 2 drp OPHTHALMIC (EYE) BID Referrals Referrals: Ludin Downey MD [Primary Care Provider] - Discharge Problem: Chest pain Qualifiers: Chest pain type: unspecified Qualified Code(s): R07.9 - Chest pain, unspecified
[2023-11-09] MEDS: POTASSIUM CHLORIDE CRTAB 20 MEQ TABCR PO STA (01:21)
[2023-11-09] MEDS ORDERED: PANTOprazole 40 MG TAB PO PRN (02:48)
[2023-11-09] MEDS: MELATONIN 3 MG TAB PO PRN (03:30)
[2023-11-09 06:16] LABS: Hematocrit (blood only) 42.8 % (42.0-52.0); Hemoglobin 14.6 g/dl (14.0-18.0); Mean Corpuscular Hemoglobin 30.5 pg (25.0-34.0); Mean Corpuscular Hgb Conc 34.1 g/dL (32.0-36.0); Mean Corpuscular Volume 89.5 fL (80.0-100.0); Mean Platelet Volume 11.8 fL (9.4-12.4); Platelet Count 163 K/uL (130-400); RDW Coefficient of Variation 12.5 % (11.5-14.5); RDW Standard Deviation 41.7 fL (36.4-46.3); Red Blood Count 4.78 M/uL (4.70-6.10); White Blood Count 7.04 K/ul (4.8-10.8)
[2023-11-09 06:42] LABS: BUN Creatinine Ratio 27.8 (10-20); Calcium 8.9 mg/dl (8.6-10.3); Creatinine Clr Calc Pharmacy 71.9 ml/min; Est GFR (African American) 95.6 ml/min; Est GFR (Non-African American) 82.5 ml/min; Potassium 4.1 mmol/L (3.5-5.1)
--- NOTE | 2023-11-09 07:19 | Electrocardiogram Report ---
Test Reason : Blood Pressure : / mmHG Vent. Rate : 076 BPM Atrial Rate : 076 BPM P-R Int : 154 ms QRS Dur : 148 ms QT Int : 398 ms P-R-T Axes : 064 -40 125 degrees QTc Int : 447 ms Normal sinus rhythm Left axis deviation Left bundle branch block Abnormal ECG When compared with ECG of 04-JUL-2022 11:42, Left bundle branch block has replaced Non-specific intra-ventricular conduction block Confirmed by Jad Martinez ([id number]) on 11/09/2023 7:19:45 AM Referred By: REFERRED SELF Confirmed By:Mao Martinez
--- NOTE | 2023-11-09 08:08 | XRay Report ---
XR chest 1V portable HISTORY: 83 years-old Male Chest pain, nonspecific COMPARISON: 11/25/2015 TECHNIQUE: AP view of the chest FINDINGS: Cardiomediastinal and hilar silhouettes are within normal limits. Spondylitic spurring spine. Prior r esection of the distal left clavicle. No pneumothorax, pleural effusion or airspace consolidation. IMPRESSION: No acute process. ACT 112: Negative or not required by law. The above report was generated using voice recognition software. It may contain grammatical, syntax o r spelling errors. Electronically signed by: Dread Rodriguez M.D. 11/09/2023 8:06 AM
--- NOTE | 2023-11-09 08:17 | Hospitalist Progress Note ---
Date of Service November 09, 2023 Assessment & Plan (1) Exertional chest pain: (2) Left bundle branch block: (3) Hypertension: (4) Type 2 diabetes mellitus without complications: (5) Situational stress: (6) BPH (benign prostatic hyperplasia): Plan Pt is a 83 yo male with PMH of LBBB, HTN, diabetes, BPH, and HLD presenting to the ER d/t chest pain. Exertional chest pain - hx of LBBB for which pt follows with cardiology; last visit 04/2023 - EKG upon admission unchanged from prior; NSR, LBBB still present - CXR WNL - lab work significant for no leukocytosis, no anemia, BMP WNL, trop 25.2 with repeat 25.1- will repeat trop again in 6hrs - last echo 2020 showed EF 50-55%, moderate LVH, and sclerotic AV; echo ordered - per last cardiology note, pt has had negative stress testing in the past (no stress test note, just noted in 05/06/23); recommend consideration of outpatient stress test if inpatient testing WNL HTN - continue home HCTZ 12.5 mg and amlodipine 5 mg daily BPH - continue home finasteride 5 mg HS DM - last A1c 7.1% 06/2023 - no home medications - as A1c within goal, will not add basal or SSI Diet: heart healthy DVT ppx: lovenox Code: DNR/DNI Dispo: admit to med/tele Admission and Anticipated Discharge Date Admission Date: November 09, 2023 Subjective Patient normally goes to the gym M, W, and F and had noticed increased chest pain w/ exertion for the last month. This CP would appear when walking on the treadmill on incline setting. No chest pain outside of this. Patient has also been dealing with having placed his into Memory Care due to Alzheimer's, and going in to see her daily. Patient had some chest tightness/dull pain last night that seemed to be relieved with potassium supplementation. Patient needs to do a stress test as outpt. Consider SL nitroglycerin. Discourage strenuous exercise until stress test. Will look at Tele. Review of Systems Constitutional: no fever, no chills and no fatigue Respiratory: + cough (dry cough for month); no chest congestion and no dyspnea Cardiovascular: no chest pain (not since last night) and no palpitations Gastrointestinal: no abdominal pain, no nausea, no vomiting, no constipation and no diarrhea/loose stools Genitourinary: + urinary frequency (baseline from BPH); no dysuria Neurologic: no tingling and no numbness Physical Exam Constitutional: WD/WN, vitals as above Results & Data Results & Data Vital Signs (Past 12 Hours) Vital Signs Temp Pulse Pulse Resp BP BP Pulse Ox 11/09/23 07:28 75 11/09/23 06:20 76 20 149/91 H 93 11/09/23 05:28 36.8 C 71 20 143/87 H 93 11/09/23 02:50 36.6 C 71 16 164/90 H 92 11/09/23 02:14 72 11/09/23 01:00 78 20 164/93 H 93 11/08/23 22:53 73 18 148/85 H 91 11/08/23 22:11 85 11/08/23 22:00 11/08/23 21:55 36.6 C 81 17 186/98 H 96 11/08/23 21:54 O2 Del Method 11/09/23 07:28 11/09/23 06:20 Room Air 11/09/23 05:28 Room Air 11/09/23 02:50 Room Air 11/09/23 02:14 11/09/23 01:00 Room Air 11/08/23 22:53 Room Air 11/08/23 22:11 11/08/23 22:00 Room Air 11/08/23 21:55 Room Air 11/08/23 21:54 Room Air Resident Activity Tracking Resident Involvement: Resident Care Provided Care Provided: Adult Hospital Medicine
[2023-11-09] MEDS: hydroCHLOROthiazide 25 MG TAB PO SCH (08:26)
[2023-11-09] MEDS: ASPIRIN 81 MG ECTAB PO SCH (08:26)
[2023-11-09] MEDS: amLODIPine BESYLATE 5 MG TAB PO SCH (08:26)
--- NOTE | 2023-11-09 14:03 | Discharge Summary ---
Date of Service November 09, 2023 Admission HPI Per Admitting Provider Pt is a 83 yo male with PMH of LBBB, HTN, diabetes, BPH, and HLD presenting to the ER d/t chest pain. Pt explains that he has had exertional chest pressure for the last 1.5 mths. This pressure only occurs with exertion. It has not been worsening. He has no hx of IL or stroke; he does have a long standing (~50 yrs) hx of LBBB which is being followed by Dr. Saab. He denies any associated symptoms- SOB, chest pain, radiation of pain, N/V/abdominal pain, diaphoresis, etc. The pt has been under a lot of stress related to his who has progressing dementia. She was recently placed into a memory care unit. Pt believes this could be contributing to his chest pressure. In the ER, pt was not given any medications. Principal Diagnosis exertional chest pain Discharge Exam Constitutional WD/WN, vitals as above Respiratory normal respiratory effort, lungs clear to auscultation Cardiovascular RRR, no murmur, no edema Extremities: normal capillary refill; no calf tenderness and no pedal edema Gastrointestinal (Abdomen) normal bowel sounds, soft, nontender, no hepatosplenomegaly Psychiatric A+Ox3, euthymic affect Discharge Data Allergies Allergy/AdvReac Type Severity Reaction Status Date / Time No Known Allergies Allergy Verified 11/09/23 00:37 Consultations 11/08/23 23:26 ED Decision to Admit Stat Hospital Course (1) Exertional chest pain: (2) Left bundle branch block: (3) Hypertension: (4) Type 2 diabetes mellitus without complications: (5) Situational stress: (6) BPH (benign prostatic hyperplasia): Plan Pt is a 83 yo male with PMH of LBBB, HTN, diabetes, BPH, and HLD presenting to the ER d/t chest pain. Exertional chest pain - hx of LBBB for which pt follows with cardiology; last visit 04/2023 - EKG upon admission unchanged from prior; NSR, LBBB still present; CXR WNL - lab work significant for no leukocytosis, no anemia, BMP WNL, HSTrop, 23.9 <-- 25.2 - last echo 2020 showed EF 50-55%, moderate LVH, and sclerotic AV; echo ordered - per last cardiology note, pt has had negative stress testing in the past (no stress test note, just noted in 05/06/23); recommend consideration of outpatient stress test if inpatient testing WNL HTN - continue home HCTZ 12.5 mg and amlodipine 5 mg daily BPH - continue home finasteride 5 mg HS DM - last A1c 7.1% 06/2023 - no home medications - as A1c within goal, will not add basal or SSI Total Time Total Time Spent Total Time Spent (In Minutes): see attending attestation Discharge Plan Discharge Items Patient Disposition: Home - Self-Care Reason For Visit: CHEST PAIN Discharge Diagnosis: exertional chest pain Activity: As commented below Activity Comment: Refrain from strenuous activity outside/at gym until stress test Non-emergency contact: Primary Care Provider and Hog Scalder Call non-emergency contact if: you have any medication questions, your symptoms worsen and your pain is concerning for you Follow-up/Referrals: Ludin Downey MD [Primary Care Provider] - Diet: Carb Consistent or DM2 Addtl Attending Provider Instructions: You were admitted to the hospital for exertional chest pain. You were treated with aspirin, potassium chloride, and your home medications. A discharge summary will be sent to your primary care physician to ensure continuity of care. Please bring this discharge summary with you to your next office appointment so that your provider can review it at that time. Follow-up appointments: Make a follow-up appointment with your [facility] within the next week. It is very important that you follow up with them shortly after discharge from the hospital so you can schedule a stress test. Their number is [phone]. We have requested a follow-up appointment with your primary care physician within one week of discharge. Please call their office if you do not hear from them. Keep all your follow-up appointments as already scheduled. If you cannot make an appointment, notify your provider. Medications: Your medication list has been reviewed and reconciled upon discharge to ensure accuracy and continuity of care. An updated list of all your medications is included with your hospital discharge paperwork. Please review this list closely, and make note of any changes. Take your medications as instructed; do not skip a dose of your medicines. Make sure all of your doctors know every medicine you are taking (including [id number] medicines, vitamins, and supplements). Call your primary care provider before taking any new medicines (including [id number] medicines, vitamins, and supplements), because some of these may interact with your current medications, or may make your symptoms worse. Tell your primary care provider if you cannot afford your medications. CONTACT YOUR PRIMARY CARE PROVIDER if you experience any of the following: exertional chest pain occurring more frequently and/or with less exertion non-exertional chest pain, worsening exertional chest pain Difficulty following your treatment plan, or difficulty taking medications CALL 911 OR GO TO THE EMERGENCY DEPARTMENT if you experience any of the following: Sudden, severe abdominal pain or nausea/vomiting Severe chest pain, or chest pain that radiates (moves) to your jaw or arm Sudden, severe shortness of breath or difficulty breathing Thank you for allowing us to participate in your care. Pending Studies at Discharge: No Studies:: F/U with Cardiology as outpatient to get stress test Stand-Alone Forms: My [facility] Tubular Labs, Smoking Cessation Medications and DC Order Prescriptions: Continued hydrochlorothiazide 12.5 mg tablet 12.5 mg PO QAM Qty: 90 3RF amlodipine 5 mg tablet 5 mg PO QAM Qty: 90 3RF multivitamin [Daily Multi-Vitamin] tablet 1 tab PO QAM k-m mineral 1 tsp PO QAM alpha lipoic acid 300 mg capsule 300 mg PO BID Prostate SR 160-250 mg capsule 1 cap PO BID Patient Comments: CONFIRMED W/ PT 08/08 cholecalciferol (vitamin D3) 50 mcg (2,000 unit) capsule 50 mcg PO MOWEFR aspirin [Adult Aspirin Regimen] 81 mg tablet,delayed release (DR/EC) 81 mg PO DAILY Qty: 30 2RF pantoprazole 40 mg tablet,delayed release (DR/EC) 40 mg PO DAILY PRN (Reason: Acid Reflux) omega-3 fatty acids 1,000 mg Capsule 0 mg PO DAILY cyanocobalamin (vitamin B-12) [Vitamin B-12] 1,000 mcg Tablet 1,000 mcg PO BID Rx Instructions: Chewable tab ascorbic acid (vitamin C) 250 mg Tablet,Chewable 250 mg PO Q OTHER DAY zinc gluconate 50 mg Tablet 50 mg PO DAILY Systane Ultra 0.4-0.3 % Drops 2 drp OPHTHALMIC (EYE) BID Discharge Orders: Discharge Order (Routine); Ordered 11/09/23 Ordered By: Jad St Admission Data Admit Date/Time: 11/09/23 00:45 Attending Provider: Lynnette Villegas Admit Provider: Katy Donohue Primary Care Provider: Ludin Downey Other Providers: Tim Moody Other Interventions: Discharge Summary Assessment (RN) Last Done: 11/09/23 14:44 Supervising Physician Co-Signing Physician Notes I personally examined the patient and verified puga points of history and exam, discussed case, and agree with decision making and plan documented by Dr. St. Patient here for evaluation of exertional chest pain with ACS workup. Evaluation showed no changes to ECG, mildly elevated hs troponin that have down trended (25.2 > 23.9), no recurrence of chest pain or pressure, and no events on telemetry. Patient endorses that chest pressure occurs occasionally with exertion over the past 1 to 2 months. He states he is quite active, maintains good approach to activity and exercise, and is very busy and under stress. Discussed that patient will likely need outpatient stress testing for further evaluation. Patient hopeful for discharge and states he will follow-up with his care manager this week for further consultation. Patient appears comfortable, lungs clear b/l to auscultation, regular rate and rhythm, no acute distress, no LE edema. Encouraged efforts to maintain glycemic control and improve diabetes for risk reduction. 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 Resident Activity Tracking Resident Involvement: Resident Care Provided Care Provided: Adult Hospital Medicine
--- OUTSIDE RECORDS SUMMARY | 2023-11-09 15:28 | External Medical Summary | Continuity of Care Document ---
Author Name Unknown Organization [facility] [id number] Address [address] [place] [phone] Care Team Providers Care Senior Engineer Name Role Phone SonyalupeLudin sanchez Primary Care Physician [phone] Encounter [facility] [id number] Date(s): 09/10/23 - 09/10/23 [place] [address] [place] [id number] [facility] [address] [place] [id number] Encounter Diagnosis S/P total knee replacement(Discharge Diagnosis) - 09/10/23 Discharge Disposition: Home or Self Care Attending Physician: MD Margie, Robb England Allergies, Adverse Reactions, Alerts No Known Allergies Assessment and Plan Extracted from: Title:Robb Hanson Author:Floyd Vuong Date:09/10/23 IMPRESSION:83 Yearsold Males/p left TKA, DOS 07/26/2022. PLAN: - Continue recovering as previous Follow up at 5 year anniversary with x-rays Medications amLODIPine 5 mg oral tablet Start: 05/14/18 8:34:00 EST, 1 tab, PO, Daily Start Date: 05/14/18 Status: Ordered amoxicillin 500 mg oral capsule Start: 11/09/22 8:46:00 EDT, 4 cap, PO, As indicated, Disp# 12 cap, Refills: 3, one hour before dental and other procedures as directed, [facility]: [id number] Start Date: 11/09/22 Status: Ordered Aspirin Low Dose 81 mg oral delayed release tablet Start: 05/06/14 8:55:00, 1 tab, PO, Daily Start Date: 05/06/14 Status: Ordered diclofenac sodium 75 mg oral delayed release tablet Start: 08/08/22 9:44:00 EDT, 1 tab, PO, bid, PRN: as needed for pain Start Date: 3/15/23 Status: Ordered finasteride 5 mg oral tablet Start: 04/17/22 9:36:00 EST, 1 tab, PO, Daily Start Date: 04/17/22 Status: Ordered Fish Oil 1000 mg oral capsule Start: 03/19/13 7:58:00, 1 cap, PO, bid Start Date: 03/19/13 Status: Ordered hydrochlorothiazide 12.5 mg oral tablet Start: 03/20/11 8:10:00 EDT, 1 tab, PO, Daily, 5 mg daily Start Date: 03/20/11 Status: Ordered One-A-Day Men 50 Plus Start: 03/20/11 8:10:00, 1 tab, PO, Daily Start Date: 03/20/11 Status: Ordered PreserVision oral tablet Start: 03/19/13 7:58:00, 1 tab, PO, Daily Start Date: 03/19/13 Status: Ordered Prostate SR 320 mg oral capsule Start: 03/20/12 8:27:00, 2 cap, PO, bid Start Date: 03/20/12 Status: Ordered simvastatin 20 mg oral tablet Start: 05/14/17 7:56:00, 1 tab, PO, qhs Start Date: 05/14/17 Status: Ordered Tylenol 500 mg oral tablet Start: 08/08/22 9:44:00 EDT, 2 tab, PO, q6h, PRN: as needed for fever Start Date: 08/08/22 Status: Ordered Vitamin B12 Start: 04/17/22 9:37:00 EST, 1,000 mcg = Start Date: 04/17/22 Status: Ordered Vitamin C Start: 06/01/21 8:16:00 EST Start Date: 06/01/21 Status: Ordered Vitamin D3 50 mcg (2000 intl units) oral tablet, chewable Start: 04/17/22 9:38:00 EST Start Date: 04/17/22 Status: Ordered Zinc Start: 06/01/21 8:16:00 EST Start Date: 06/01/21 Status: Ordered Mental Status 09/10/23 Barriers to Learning one year None evide nt Mandatory Health Literacy Documentation Yes Health Literacy Communication Barriers N ever Primary Language Stateless Problem List Condition Confirmation Course Effective Dates Status Health St atus Informant Benign neoplasm of skin Confirmed Active Diabetes Confirmed Active Epidermal cyst Confirmed Active Family history of melanoma 1 Confirmed Active Elevated cholesterol Confirmed Active HTN (hypertension) Confirmed Active Inflamed seborrheic keratosis Confirmed Active Irregular heartbeat Confirmed Active Lipoma Confirmed Active Neurofibroma Confirmed Active Left knee pain Confirmed Active Keratosis, seborrheic Confirmed Active 1father Diagnosis Diagnosis Type Effective Dates Health Status Clinical Service Informant S/P total knee replacement Discharge Diagnosis 09/10/23 Procedures Procedure Date Related Diagnosis Body Site Status Cataract Completed Esophageal dilator Comple calvin Prostate 1 Completed Punch biopsy Completed Rotator cuff repair Compl eted 1surgery Social History Social History Type Response Smoking Status Never smoked cigaret lily Sex Male Ortho Outpt Note * Floyd Vuong: PERFORM, MODIFY Event Display: Ortho Outpt Note Authored Date: [id number] Primary Care Provider MD Shayan, uLdin Skinner Chief Complaint 1 yr f/u L knee History of Present Illness [id number] Emilee presents today forf/u s/p left TKA, DOS 07/26/2022. He is doing well and is lifting weight at the gym. He is much improved since prior to surgery. He plans on limiting his extreme sports in the future. Review of Systems A 14 point review of systems isavailable in the EMR. Physical Exam Focusing on the patient'sLeft lower extremity: Sensation intact to light touch L3 to S1 dermatomes. ROM:3to 135 Incisions well healed Unchanged from prior Diagnostic Results I obtained and personally interpreted3 views of theleft knee which shows no evidence of loosening or complications. Hardware in good position. Assessment/Plan IMPRESSION:83 YearsoldMales/p left TKA, DOS 07/26/2022. PLAN: - Continue recovering as previous Follow up at 5 year anniversary with x-rays Attestation Floyd Alegria, scribing for and in the presence of, Robb Hanson, on this date,09/10/2023 12:05:31. Problem List/Past Medical History Ongoing Benign neoplasm of skin Diabetes Elevated cholesterol Epidermal cyst Family history of melanoma HTN (hypertension) Inflamed seborrheic keratosis Irregular heartbeat Keratosis, seborrheic Left knee pain Lipoma Neurofibroma Procedure/Surgical History Esophageal dilatorPunch biopsyCataractProstateRotator cuff repair Medications acetaminophen(Tylenol 500 mg oral tablet), 1000 mg= 2 tab, PO, q6h, PRN amLODIPine(amLODIPine 5 mg oral tablet), 5 mg= 1 tab, PO, Daily amoxicillin(amoxicillin 500 mg oral capsule), 2000 mg= 4 cap, PO, As indicated, 3 refills ascorbic acid(Vitamin C) aspirin(Aspirin Low Dose 81 mg oral delayed release tablet), 81 mg= 1 tab, PO, Daily cholecalciferol(Vitamin D3 50 mcg (2000 intl units) oral tablet, chewable) cyanocobalamin(Vitamin B12), 1000 mcg diclofenac(diclofenac sodium 75 mg oral delayed release tablet), 75 mg= 1 tab, PO, bid, PRN finasteride(finasteride 5 mg oral tablet), 5 mg= 1 tab, PO, Daily hydroCHLOROthiazide(hydrochlorothiazide 12.5 mg oral tablet), 12.5 mg= 1 tab, PO, Daily multivitamin with minerals(One-A-Day Men 50 Plus), 1 tab, PO, Daily multivitamin with minerals(PreserVision oral tablet), 1 tab, PO, Daily omega-3 polyunsaturated fatty acids(Fish Oil 1000 mg oral capsule), 1000 mg= 1 cap, PO, bid saw palmetto(Prostate SR 320 mg oral capsule), 640 mg= 2 cap, PO, bid simvastatin(simvastatin 20 mg oral tablet), 20 mg= 1 tab, PO, qhs zinc sulfate(Zinc) Allergies NKA Social History Smoking Status Never smoked cigarettes Family History Diabetes type: Unknown. Heart disease: Unknown. Stroke: Unknown. Health Status Family Member(s) Recommendations Health Maintenance Pending(in the next year) OverDue Adult Influenza Vaccine due11/23/22and every 1year Body Mass Index due07/05/23and every 366day Due Adult COVID-19 Vaccination due09/10/23Unknown Frequency Adult Social Determinants of Health Screening due09/10/23Unknown Frequency Adult Tdap/Td Vaccine due09/10/23Unknown Frequency Diabetes Management A1c due09/10/23Unknown Frequency Diabetes Nephropathy Management due09/10/23Unknown Frequency Diabetic Eye Exam due09/10/23Unknown Frequency Medicare Annual Wellness Visit due09/10/23and every 1year Pneumococcal Vaccine Older Adults due09/10/23One-time only Shingles Vaccine due09/10/23One-time only Satisfied(in the past 1 year) There are no satisfied recommendations within the defined date range Electronic Signature on File Electronically Reviewed/Signed by: Floyd Vuong Author Signature Dt/Tm:09/10/2023 12:15 PM Electronically Reviewed/Signed by: Robb Hanson MD Cosigner Signature Dt/Tm: 09/10/2023 05:08PM Division of Sports Medicine DS Patient Care team information Care Team Personnel Name: MD Downey Stephen J Position: Referring Member Role: Primary Care Provider Address: Address: [facility] [address] [place] [address] Care Team Related Persons Name: ZIA ESPINO Address: [address], [place] [id number]
--- OUTSIDE RECORDS SUMMARY | 2023-11-09 15:28 | External Medical Summary | Summary of Care ---
Author Name Unknown Organization [facility] Address [address] [place] [address] Phone [phone] Care Team Providers Care Stock Tracer Name Role Phone Ludin Downey MD Primary Care Provide r Reason for Visit * Reason Comments Follow Up Encounter Details Date Type Department Care Team (Late st Contact Info) Description 09/19/2023 7:45 AM EDT Office Visit Ophthalmology, [facility] [address] [facility] [place] [address] Jad Ricardo, [address] [facility] [place] [address] Nonexudative age-related macular degeneration, bilateral, intermediate dry stage*; Epiretinal membrane (ERM) of right eye; LAMP MECHANIC (central serous retinopathy), bilateral Allergies Active Allergy Reactions Criticality Noted Date Comments No Known Drug Allergy 12/22/2002 documented as of this encounter (statuses as of 09/19/2023) Medications Medication Sig Dispensed Refills Start Date End Date Status DAILY MULTI VITAMIN/MINERALS PO TABS one by mouth daily 0 Active ZINC 50 MG PO TABS one by mouth one to two times a week 0 Active PRESERVISION/LUTEIN PO CAPS One capsule twice a day 0 Active GLUCOSAMINE CHONDR 1500 COMPLX PO CAPS one by mouth daily 0 Active FISH OIL 1200 MG PO CAPS twice daily 0 Active ASPIRIN EC 81 MG PO TBECIndications:LBBB (left bundle branch block) 1 TABLET DAILY 99 Tab 99 06/13/2012 Active Additional Information Patient taking differently: 81 mgOralDaily(AM), Reported on 09/17/2022 PROSTATE SR 160-250 MG PO CAPS twice daily 0 Active amLODIPine Besylate 5 MG Oral Tablet (Norvasc) Take 1 Tablet by mouth in the morning. 0 06/22/2021 Active Finasteride 5 MG Oral Tablet (Proscar) Take 1 Tablet by mouth in the morning. 0 02/14/2022 Active hydroCHLOROthiazide 12.5 MG Oral Tablet (Hydrodiuril) Take 1 Tablet by mouth in the morning. 0 12/18/2021 Active Vitamin B-12 100 MCG Oral Tablet (vitamin B-12) Take 1 Tablet by mouth. Every other day 0 04/17/2022 Active Vitamin D3 50 MCG (2000 UT) Oral Capsule Take 1 Capsule by mouth every other day. 0 04/17/2022 Active Pantoprazole Sodium 40 MG Oral Tablet Delayed Release (Protonix) Take 1 Tablet by mouth in the morning. As needed. 0 08/29/2022 Active documented as of this encounter (statuses as of 09/19/2023) Active Problems Problem Noted Date Diagnosed Date S/P total knee arthroplasty, left 08/02/2022 Hypertension goal BP (blood pressure) < 140/90 0 08/02/2022 BPH with obstruction/lower urinary tract symptom s 08/02/2022 Nonexudative macular degeneration 10/26/2010 DYSLIPIDEMIA, GOAL TO BE DETERMINED 05/05/2009 Overview: Per Lipid Taxonomy. Other specified conduction disorder 12/22/2002 Family history of other cardiovascular diseases 12/22/2002 Overview: ICD-10 update of inactive term documented as of this encounter (statuses as of 09/19/2023) Resolved Problems Problem Noted Date Diagnosed Date Resolved Date PURE HYPERCHOLESTEROLEM 12/22/200204/26 Overview: Per Lipid Taxonomy. documented as of this encounter (statuses as of 09/19/2023) Immunizations Name Administration Dates Next Due Seasonal Influenza, Quadrivalent Hd (Fluzone Hd) 03/12/2023 documented as of this encounter Social History Tobacco Use Types Packs/Day Years Used Date Smoking Tobacco: Former Cigarettes 2 0 05/27/1957 - 05/27/1959 Smokeless Tobacco: Never Alcohol Use Standard Drinks/Week Comments Yes 1 (1 standard drink = 0.6 oz pur e alcohol) glass of wine once per week Sex and Gender Information Value Date Recorded Sex Assigned at Not on file Gender Identity Not on file Sexual Orientation Not on file Job Start Date Occupation Industry Not on file Not on file Not on file documented as of this encounter Progress Notes * Jad Ricardo, - 09/19/2023 7:45 AM EDT [facility] [place] Nursing notes reviewed. Eye vitals reviewed. Mood and Affect: normal HPI: Mark Anthony Cox is a 83 year old male who presents for evaluation of AMD. No other eye complaints. Denies significant pain. Base Eye Exam Visual Acuity (Snellen - Linear) Right Left Dist cc 20/30 20/40 Dist ph cc 20/30 -2 Correction: Glasses Tonometry (Tonopen, 7:56 AM) Right Left Pressure 10 10 Pupils Pupils APD Right PERRL None Left PERRL None Visual Miller (Counting fingers) Right Left Full Full Extraocular Movement Right Left Ortho Ortho -- -- -- -- -- -- -- -- -- -- -- -- -- -- -- -- Neuro/Psych Oriented x3: Yes Mood/Affect: Normal Dilation Both eyes: 0.5% Proparacaine @ 7:56 AM Dilation #2 Both eyes: 1.0% Mydriacyl, 2.5% Phenylephrine @ 7:56 AM Dilation Comments Patient cautioned that effects of dilation may last 2-7 hours dependant upon individual reaction. It was discussed that driving while dilated is not recommended. EXTERNAL: The ocular adnexae are unremarkable. SLE: Lids/Lashes: wnl OU Conjunctiva/Sclera: quiet OU Cornea: clear OU Anterior Chamber: deep and quiet OU Iris: normal OU; no NVI OU Lens: PCIOL OU Dilated fundus exam OD: vitreous: clear optic nerve: 0.2, no edema/pallor/NVD macula: +rpe mottling/atrophy, PEDs, no heme vessels: wnl midperiphery: wnl periphery: no RT/RD Dilated fundus exam OS: vitreous: clear optic nerve: 0.2, no edema/pallor/NVD macula: +rpe mottling/atrophy, PEDs, no heme vessels: wnl midperiphery: wnl periphery: no RT/RD OCT Interpretation: OD: +PED, ERM w/ cystic changes, +disruption of rpe/photoreceptor--STABLE, prior STABLE, prior STABLE, prior STABLE, prior STABLE, prior trace larger PED w/ draping but otherwise STABLE compared to OCT here 02/23/13 OS: +scattered PEDs w/ some central disruption of rpe/photoreceptors, trace nasal ME, trace extra foveal ERM, resolved srfluid--STABLE, prior improved, prior new srfluid, prior no sig change comparedto OCT here 02/23/13 A/P: 1. Age-Related Macular Degeneration OU -also h/o CSCR -strong family h/o AMD, brother -srfluid on OCT OS 05/16/21 resolved (probably CSCR)(was asymptomatic) pt resistent to starting anti-VEGF -recommend AREDS2 MVI as directed and Amsler grid qday 2. Epiretinal Membrane OD -no change -hold on intervention -recommend Amsler grid monitoring qday. -continue to observe 3. Pseudophakia OU -stable 4. DM2 -diet controlled per pt -no retinopathy F/u 6 months, OCT OU Jad Ricardo DO 1023 CC: Mathew Barrow, OD CC: PCP: Ludin Downey MD documented in this encounter Nursing Notes * Lynette Agrawal RN - 09/19/2023 7:49 AM EDT Mark Anthony Cox is a 83 year old year old male who presents for AMD OU. Last Office Visit: 03/19/2023 (in office), Visit date not found (telemedicine) Patient currently states "find my vision is getting weak- not sure if vision changes are r/t my stress" Are you diabetic? Yes. Do you check your blood sugars daily? YES. Fasting BS this mornin mg/dl. Last Hemoglobin A1C: Lab Results Component Value Date/Time HGBA1C 6.7 (A) 04/28/2020 12:00 AM HGBA1C 6.3 (A) 11/01/2016 12:[address]? yes OCT image(s) of both eyes acquired and filed/scanned into chart. documented in this encounter Plan of Treatment Upcoming Encounters Date Type Department Care Team (Late st Contact Info) Description 03/24/2024 7:45 AM EDT Office Visit Ophthalmology, [facility] [address] [facility] [place] [address] Jad Ricardo DO [address] [place] [address] Scheduled Orders Name Type Priority Associated Diagnoses Orde r Schedule RETINA SCAN DIAGNOSTIC IMAGE, POSTERIOR Procedures Routine Nonexudative age-related macular degeneration, bilateral, intermediate dry stage Ordered: 09/19/2023 Health Maintenance Due Date Last Done Comments Depression Screening 1952 Albumin/Creatinine Ratio 1957 DTaP,Tdap,and Td Vaccines (1 - Tdap) 1959 GFR 03/30/2018 03/30/2017 COVID-19 Vaccine ( season) 2023 04/12/2021, 07/09/2020, 07/09/2020, Additional history exists Pneumococcal Vaccine: 65+ Years Completed 04/26/2015, 05/27/2009 Zoster Vaccines Completed 12/26/2019, 0810/2017, 10/18/2017, Additional history exists Influenza Vaccine (FLU shot) Completed , 02/28/2021, 02/28/2021, Additional history exists GARDASIL-HPV IMMUNIZATION SERIES Aged Out No longer eligible based on patient's age to complete this topic Hepatitis B Aged Out No longer eligi ble based on patient's age to complete this topic MENINGOCOCCAL (MENACTRA/MENVEO) Aged Out No longer eligible based on patient's age to complete this topic documented as of this encounter Medical Devices Not on filedocumented as of this encounter Visit Diagnoses Diagnosis Nonexudative age-related macular degeneration, bilateral, intermediate dry stage- Primary Epiretinal membrane (ERM) of right eye LAMP MECHANIC (central serous retinopathy), bilateral documented in this encounter Care Teams Stock Tracer Relationship Specialty Start Date End Date Ludin Downey MD [address] [place] [address] PCP - General 12/22/02 documented as of this encounter
--- NOTE | 2023-11-09 17:35 | XCELERA ---
[id number] [id number]
--- NOTE | 2023-11-09 23:21 | Billing Data ---
Date of Service November 09, 2023 Coding Level of Care Code 19600 INT INP/OBS CARE
[2023-11-10] MEDS ORDERED: ENOXAPARIN INJ 40 MG/0.4 ML SYR SQ SCH (09:00)
== END 2023-11-09 14:45 | disposition home or self-care (01) ==
LOC: ED 21:53 → EDINP 21:53 → SUATTDRO 11-09 00:45 → EDINP 11-09 14:44